=== PATIENT | female | born 1930 | race Caucasian/White ===

== ENCOUNTER → 2017-01-10 | Outpatient (CLI) | payer MEDICARE, OTHER | END | disposition home or self-care (01) | LOC: GMAJ 11:19 | PROVIDERS: ATTEND Family Medicine | DX: E03.9 Hypothyroidism, unspecified (principal) ==

== ENCOUNTER → 2017-01-13 | Outpatient (CLI) | payer MEDICARE, OTHER | END | disposition home or self-care (01) | LOC: GMAJ 07:50 | PROVIDERS: ATTEND Family Medicine | DX: E83.42 Hypomagnesemia (principal) ==

== ENCOUNTER → 2017-01-27 | Outpatient (CLI) | payer MEDICARE, OTHER | END | disposition home or self-care (01) | LOC: GMAJ 10:46 | PROVIDERS: ATTEND Family Medicine | DX: D64.9 Anemia, unspecified (principal) ==

== ENCOUNTER → 2017-05-17 | Outpatient (CLI) | payer MEDICARE, OTHER | LOC: GRHH 13:02 | PROVIDERS: ATTEND Family Medicine | DX: R30.9 Painful micturition, unspecified (principal) ==

== ENCOUNTER 2017-05-20 20:36 | Emergency (ER) | payer MEDICARE, OTHER ==
[2017-05-20] MEDS ORDERED: SODIUM CHLORIDE 0.9% (FLUSH) 10 ML SYG IV PRN (21:02)
[2017-05-20] MEDS ORDERED: ASPIRIN TABLET 325 MG TAB PO ONE (21:02)
[2017-05-20] MEDS ORDERED: NITROGLYCERIN 0.4 MG 25 EA TAB SL ONE (21:02)
--- NOTE | 2017-05-20 21:50 | ED.PDOC ---
History of Present Illness - General Chief Complaint: Chest Pain/VA Stated Complaint: CP Time Seen by Provider: 05/20/17 21:27 Source: patient, RN notes reviewed, Vital Signs reviewed, family Exam Limitations: no limitations - History of Present Illness Initial Comments: Patient comes in with c/o intermittent chest heaviness for the past month. She came today because it was worse than before. The pain is substernal. + SOB, no diaphoresis. She has been nauseated but attributed it to the antibiotic she is on for a bladder infection. She has a history of a. 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 Except for this episode starting a month ago she denies any prior episodes of chest pain/heaviness. Pain is worse if she bends over. She is able to walk around the block several times with physical therapy w/o chest discomfort but does get SOB. Timing/Duration: intermittent - over the past month Severity/Quality: mild - 2-3/10, other - heaviness Location: substernal Chest Pain Radiation: no radiation Activities at Onset: other - Does not seem to be tied to any activity and resolves on its own Prior Chest Pain/Cardiac Workup: other - Scheduled for stress test next week. Improving Factors: nothing Worsening Factors: other - bending over Nitro Today/Relief: 0.4 mg x 1, provided by ED, complete relief Aspirin Treatment Today: no aspirin today - Patient reports she was told not to take asprin, Associated Symptoms: nausea/vomiting, shortness of breath Allergies/Adverse Reactions: Allergies Amiodarone Allergy (Verified 05/20/17 20:59) Ofloxacin [From Floxin] Allergy (Verified 05/20/17 20:59) Propafenone Allergy (Verified 05/20/17 20:59) Home Medications: Ambulatory Orders Calcium Citrate [Dexter-Citrate] 150 mg PO DAILY 04/15/14 Carvedilol 12.5 mg PO TID 04/15/14 Flaxseed (Linseed) [Flax Seed Oil] 1,000 mg PO DAILY 04/15/14 Hydroxychloroquine [Plaquenil] 200 mg PO BID 04/15/14 Levothyroxine Sodium [Synthroid] 0.088 mg PO DAILY 04/15/14 Multiple Vitamins W/ Minerals [Multi Complete] 1 ea PO DAILY 04/15/14 Amiodarone HCl 200 mg PO 05/20/17 Folic Acid 1 mg PO 05/20/17 Review of Systems - Review of Systems Constitutional: States: no symptoms reported EENTM: States: no symptoms reported Respiratory: States: short of breath. Denies: cough Cardiology: States: chest pain. Denies: edema, palpitations, syncope Gastrointestinal/Abdominal: States: nausea. Denies: abdominal pain, vomiting Musculoskeletal: States: no symptoms reported Skin: States: no symptoms reported Neurological: States: no symptoms reported All other Systems: No Change from Baseline Past Medical History (General) - Patient Medical History Hx Seizures: No Hx Stroke: No Hx Dementia: No Hx Asthma: Yes Hx of COPD: No Hx Cardiac Disorders: Yes Hx Congestive Heart Failure: No Hx Pacemaker: No Hx Hypertension: Yes Hx Thyroid Disease: No Hx Diabetes: No Hx Gastroesophageal Reflux: Yes Hx Renal Disease: No Hx Cancer: No Hx of HIV: No Hx Hepatitis C: No Hx MRSA: No Surgical History: appendectomy, tonsillectomy, Hysterectomy - Vaccination History Hx Tetanus, Diphtheria Vaccination: Yes Hx Influenza Vaccination: Yes Hx Pneumococcal Vaccination: Yes Immunizations Up to Date: Yes - Social History Hx Tobacco Use: No Hx Chewing Tobacco Use: No Hx Alcohol Use: No Hx Substance Use: No Hx Substance Use Treatment: No Hx Depression: No Feels Threatened In Home Enviroment: No Feels Threatened In a Relationship: No Hx Physical Abuse: No Hx Emotional Abuse: No Hx Suspected Abuse: No Family Medical History - Family History Mother Family History: No Known Living Status: Age at (years of age): 98 Cause of : pneumonia Father Family History: No Known Living Status: Age at (years of age): 64 Cause of : surgical complications Sister Family History: Unknown Living Status: Cause of : Lung Cancer Physical Exam - Physical Exam General Appearance: Alert, Comfortable, No apparent distress, Well Developed, Well Groomed, Well Hydrated, Well Nourished Neck: non-tender, supple, normal inspection Respiratory: lungs clear, normal breath sounds, no respiratory distress, no accessory muscle use, other - Lower middle chest wall tenderness Cardiovascular/Chest: regular rate, rhythm, no edema, no gallop, no JVD, no murmur Gastrointestinal/Abdominal: normal bowel sounds, soft, tenderness - epigastric without guarding or rebound. Extremity: normal range of motion, normal inspection Neurologic: alert, normal mood/affect, oriented x 3 Skin Exam: normal color, warm/dry Comments: Vital Signs - 24 hr 05/20/17 20:45 Temperature 98.4 F Pulse Rate [ 69 monitor] Respiratory 16 Rate Blood Pressure 166/81 [Right Arm] O2 Sat by Pulse 100 Oximetry Progress - Progress Progress: 05/20/17 22:52 Patient got up to go to the restroom and now reports chest pain has returned. Initial cardiac enzymes are normal. Will do a second set. Will try GI cocktail to see if helps with symptoms, if not will give another SLNTG 05/21/17 00:13 Patient reports that the pain improved significantly with the GI cocktail but did not go completely away. Awaiting second set of cardiac enzymes. 05/21/17 00:17 Second set of Cardiac enzymes are normal Will d/c home and have her follow up with her brim stiffener and PCP. - Results/Orders Results/Orders: Laboratory Tests 05/20/17 05/20/17 21:00 23:50 WBC 7.4 RBC 3.91 L Hgb 12.0 Hct 35.7 L MCV 91.3 MCH 30.6 MCHC 33.5 RDW 15.3 H Plt Count 133 MPV 8.1 Absolute Neuts (auto) 5.60 Absolute Lymphs (auto) 1.00 Absolute Monos (auto) 0.70 Absolute Eos (auto) 0.00 Absolute Basos (auto) 0.00 Neutrophils % 76.5 Lymphocytes % 13.8 L Monocytes % 9.2 H Eosinophils % 0.0 L Basophils % 0.5 PT 11.1 INR 0.980 PTT (SP) 29.3 Sodium 130 L Potassium 4.1 Chloride 93 L Carbon Dioxide 27 Anion Gap 14.1 BUN 37 H Creatinine 1.93 H BUN/Creatinine Ratio 19.2 Random Glucose 122 H Serum Osmolality 270.8 L Calcium 9.3 Magnesium 2.0 Creatine Kinase 103 81 CK-MB (CK-2) 2.8 2.4 CK-MB (CK-2) % Not Reportable Not Reportable Troponin I < 0.02 < 0.02 B-Natriuretic Peptide 359.0 H* - EKG/XRAY/CT EKG: nonspecific ST T wave Chg Comments: Electronic pacemaker, Incomplete LBBB, no old EKG for comparison XRAY: chest - Enlarged heart but no vascular congestion Departure - Departure Clinical Impression: Atypical chest pain Time of Disposition: 00:18 Disposition: Discharge to Home or Self Care Condition: Fair Departure Forms: ED Discharge - Pt. Copy, Patient Portal Self Enrollment Instructions: DI for Atypical Chest Pain Diet: resume usual diet Activity: increase activity as tolerated Referrals: Francisco Lubin MD [Primary Care Provider] - 1-2 Weeks Home Medications: Ambulatory Orders Calcium Citrate [Dexter-Citrate] 150 mg PO DAILY 04/15/14 Carvedilol 12.5 mg PO TID 04/15/14 Flaxseed (Linseed) [Flax Seed Oil] 1,000 mg PO DAILY 04/15/14 Hydroxychloroquine [Plaquenil] 200 mg PO BID 04/15/14 Levothyroxine Sodium [Synthroid] 0.088 mg PO DAILY 04/15/14 Multiple Vitamins W/ Minerals [Multi Complete] 1 ea PO DAILY 04/15/14 Amiodarone HCl 200 mg PO 05/20/17 Folic Acid 1 mg PO 05/20/17 Comments: Follow up with your brim stiffener next week Return to ER with any new or worsening symptoms
--- NOTE | 2017-05-20 22:44 | RAD ---
EXAM DESCRIPTION: Chest,1 View CLINICAL HISTORY: 86 years, Female, chest pain COMPARISON: Chest x-ray dated 08/26/2014. Chest x-ray dated 03/22/2017. FINDINGS: Upright portable chest radiograph was performed. This is the prior study is a dual-chamber bipolar pacemaker with intact leads. No pneumothorax. The lungs are well expanded and clear. The costophrenic sulci are sharp. The cardiac silhouette is enlarged without pulmonary edema. The hilar regions, trachea, soft tissues and bony structures are unremarkable aside from degenerative changes. No significant change since the prior study. IMPRESSION: No acute cardiopulmonary disease. Cardiomegaly. Electronically signed by: Charity Tay MD 05/20/2017 10:43 PM CDT
[2017-05-20] MEDS ORDERED: LIDOCAINE VIS-MYLANTA 30 ML UD PO ONE (22:53)
[2017-05-21 00:24] VITALS: BP 188/96; TEMP 97.4; O2SAT 97
== END 2017-05-21 00:24 | disposition home or self-care (01) ==
LOC: ER 20:36
DX: R07.89 Other chest pain (principal); I44.7 Left bundle-branch block, unspecified; K21.9 Gastro-esophageal reflux disease without esophagitis; J45.909 Unspecified asthma, uncomplicated; I51.9 Heart disease, unspecified; I11.9 Hypertensive heart disease without heart failure; Z95.0 Presence of cardiac pacemaker

== ENCOUNTER → 2017-05-25 | Outpatient (CLI) | payer MEDICARE, OTHER | END | disposition home or self-care (01) | LOC: LAB.O 12:06 | PROVIDERS: ATTEND Internal Medicine Nephrology | DX: N18.4 Chronic kidney disease, stage 4 (severe) (principal); R53.83 Other fatigue ==

== ENCOUNTER → 2017-05-27 | Outpatient (CLI) | payer MEDICARE, OTHER ==
--- NOTE | 2017-05-29 14:08 | CT ---
EXAM DESCRIPTION: Abdoment/Pelvis w/o Contrast CLINICAL HISTORY: CHRONIC KIDNEY DISEASE, STAGE 4 COMPARISON: October 28, 2014 TECHNIQUE: Noncontrast transaxial CT images of the abdomen and pelvis are obtained. This exam was performed according to our departmental dose-optimization program, which includes automated exposure control, adjustment of the mA and/or kV according to patient size and/or use of iterative reconstruction technique . FINDINGS: Visualized lung bases show dual-lead transvenous cardiac pacemaker leads in place. Mild interstitial thickening in the right lung base is seen. Surgical clips in the upper epigastric region are again seen. Imaging of the solid organs is limited without IV contrast. Several fluid attenuation hepatic cysts are stable from previous. There is a stable 1.5 cm low-attenuation lesion of the spleen. Surgical clips from cholecystectomy are seen. Dense calcification inferior to the head of the pancreas measuring 1.3 cm is again seen. Mild calcific atherosclerotic disease is noted. Bilateral renal cortical cysts are seen. Some cysts are hyperdense wall is a fluid attenuation relatively stable from previous. No ureteral calcification or obstruction is seen. Urinary bladder is mostly contracted and not well evaluated. There is diffuse circumferential urinary bladder wall thickening. Uterus is presumed surgically absent. The ovaries are not identified. No seen. No secondary signs of acute appendicitis are identified. No small bowel obstruction. Stomach is mostly contracted and not well evaluated. No significant diverticular disease. No pathologically enlarged abdominal or retroperitoneal lymphadenopathy. Osseous structures show diffuse osteopenia. 3 surgical pins fixating the left femoral head and neck are again seen. There has been interval resolution of the fluid collections around the left hip seen on previous exam. Right-sided rib fractures are noted. Moderate to severe disc degenerative changes of the bilateral noted most significant at L1-2 and L5-S1. IMPRESSION: No acute findings on noncontrast CT of the abdomen and pelvis. Chronic findings are mostly stable compared to previous exam. Diffuse urinary bladder wall thickening is nonspecific and could be secondary to poor distention of the urinary bladder. Infectious or inflammatory etiology could have a similar appearance. Simple fluid attenuation and complex hyperdense renal cortical cysts are noted and appear relatively similar to previous exam given differences in imaging technique. No hydronephrosis or ureteral obstruction. Electronically signed by: Francis Campbell MD 05/29/2017 2:07 PM CDT
== END | disposition home or self-care (01) ==
LOC: CT 08:58
PROVIDERS: ATTEND Internal Medicine Nephrology
DX: N18.4 Chronic kidney disease, stage 4 (severe) (principal)

== ENCOUNTER → 2017-06-06 | Outpatient (CLI) | payer MEDICARE, OTHER | END | disposition home or self-care (01) | LOC: GRHH 09:43 | PROVIDERS: ATTEND Family Medicine | DX: E03.9 Hypothyroidism, unspecified (principal); I10 Essential (primary) hypertension ==

== ENCOUNTER → 2017-06-30 | Outpatient (CLI) | payer MEDICARE, OTHER | END | disposition home or self-care (01) | LOC: GMAJ 15:07 | PROVIDERS: ATTEND Family Medicine | DX: N18.9 Chronic kidney disease, unspecified (principal); I12.9 Hypertensive chronic kidney disease with stage 1 through stage 4 chronic kidney disease, or unspecified chronic kidney disease ==

== ENCOUNTER → 2017-09-26 | Outpatient (CLI) | payer MEDICARE, OTHER | END | disposition home or self-care (01) | LOC: GMAJ 14:53 | PROVIDERS: ATTEND Family Medicine | DX: D64.9 Anemia, unspecified (principal) ==

== ENCOUNTER → 2017-10-10 | Outpatient (CLI) | payer MEDICARE, OTHER | END | disposition home or self-care (01) | LOC: GRHH 10:39 | PROVIDERS: ATTEND Family Medicine | DX: I12.9 Hypertensive chronic kidney disease with stage 1 through stage 4 chronic kidney disease, or unspecified chronic kidney disease (principal); N18.4 Chronic kidney disease, stage 4 (severe) ==

== ENCOUNTER → 2017-10-25 | Outpatient (CLI) | payer MEDICARE, OTHER | END | disposition home or self-care (01) | LOC: GMA 10:54 | PROVIDERS: ATTEND Family Medicine | DX: I10 Essential (primary) hypertension (principal) ==

== ENCOUNTER → 2017-12-15 | Outpatient (CLI) | payer MEDICARE ==
--- NOTE | 2017-12-15 16:18 | RAD ---
EXAM DESCRIPTION: Pelvis CLINICAL HISTORY: 87 years Female, PAIN IN RIGHT HIP COMPARISON: August 17, 2015 FINDINGS: Single AP view of the pelvis shows 3 orthopedic screws fixating the left femoral neck stable from previous. There is a new, impacted right subcapital femoral neck fracture with sclerosis along the fracture margin. This likely represents Garden 1 classification fracture. Consider further evaluation with 2 views of the right hip. Osseous structures are diffusely osteopenic. IMPRESSION: There is a new, impacted right subcapital femoral neck fracture with sclerosis along the fracture margin. This likely represents Garden 1 classification fracture. Consider further evaluation with 2 views of the right hip. Electronically signed by: Francis Campbell MD 12/15/2017 4:17 PM [facility]
--- NOTE | 2017-12-15 16:36 | RAD ---
EXAM DESCRIPTION: Knee,Right Complete CLINICAL HISTORY: 87 years, Female, PAIN IN RIGHT KNEE COMPARISON: None TECHNIQUE: Four views of the right knee FINDINGS: No significant joint effusion is noted but moderate degenerative disc disease and at least mild osteopenia is present with advanced lateral compartment patellofemoral degenerative changes evident on the axial image. Chondrocalcinosis in the lateral joint compartment of the knee and to a lesser extent medially is present. No fracture or dislocation is seen. IMPRESSION: 1. Osteopenia and degenerative changes with chondrocalcinosis. Electronically signed by: Pj Rubio MD 12/15/2017 4:35 PM [facility]
== END | disposition home or self-care (01) ==
LOC: RAD 09:17
PROVIDERS: ATTEND Orthopaedic Surgery
DX: M25.561 Pain in right knee (principal); M25.551 Pain in right hip

== ENCOUNTER 2017-12-24 20:01 | Emergency (ER) | payer MEDICARE ==
[2017-12-24] MEDS ORDERED: LABETALOL INJ 5 MG/ML VIAL IV ONE (20:27)
--- NOTE | 2017-12-24 20:31 | ED.PDOC ---
History of Present Illness - General Stated Complaint: high blood pressure Time Seen by Provider: 12/24/17 20:13 Source: patient Exam Limitations: no limitations - History of Present Illness Timing/Duration: unsure Severity: moderate Improving Factors: nothing Worsening Factors: nothing Associated Symptoms: malaise, other - dizziness and jitteriness Allergies/Adverse Reactions: Allergies Ofloxacin [From Floxin] Allergy (Verified 12/24/17 20:27) Propafenone Allergy (Verified 12/24/17 20:27) Home Medications: Ambulatory Orders Calcium Citrate [Dexter-Citrate] 150 mg PO DAILY 04/15/14 Carvedilol 12.5 mg PO TID 04/15/14 Flaxseed (Linseed) [Flax Seed Oil] 1,000 mg PO DAILY 04/15/14 Hydroxychloroquine [Plaquenil] 200 mg PO BID 04/15/14 Levothyroxine Sodium [Synthroid] 0.088 mg PO DAILY 04/15/14 Multiple Vitamins W/ Minerals [Multi Complete] 1 ea PO DAILY 04/15/14 Amiodarone HCl 200 mg PO 05/20/17 Folic Acid 1 mg PO 05/20/17 Clonidine HCl 0.2 mg PO BID PRN #20 tab 12/24/17 Review of Systems - Review of Systems Constitutional: States: no symptoms reported. Denies: diaphoresis, weakness EENTM: States: nose congestion Respiratory: Denies: cough, short of breath, wheezing Cardiology: Denies: chest pain, palpitations, syncope Gastrointestinal/Abdominal: Denies: abdominal pain, nausea, vomiting Genitourinary: States: no symptoms reported. Denies: dysuria Musculoskeletal: States: joint pain, joint swelling Skin: Denies: rash Neurological: States: anxiety. Denies: headache, numbness, paresthesia, weakness Endocrine: States: no symptoms reported Hematologic/Lymphatic: States: no symptoms reported Past Medical History (General) - Patient Medical History Hx Seizures: No Hx Stroke: No Hx Dementia: No Hx Asthma: Yes Hx of COPD: No Hx Cardiac Disorders: Yes Hx Congestive Heart Failure: No Hx Pacemaker: Yes Hx Hypertension: Yes Hx Thyroid Disease: Yes Hx Diabetes: No Hx Gastroesophageal Reflux: Yes Hx Renal Disease: No Hx Cancer: No Hx of HIV: No Hx Hepatitis C: No Hx MRSA: No Surgical History: appendectomy, cholecystectomy, Hysterectomy - Vaccination History Hx Tetanus, Diphtheria Vaccination: Yes Hx Influenza Vaccination: Yes Hx Pneumococcal Vaccination: Yes - Social History Hx Tobacco Use: No Hx Chewing Tobacco Use: No Hx Alcohol Use: No Hx Substance Use: No Hx Substance Use Treatment: No Hx Depression: No Feels Threatened In Home Enviroment: No Feels Threatened In a Relationship: No Hx Physical Abuse: No Hx Emotional Abuse: No Hx Suspected Abuse: No - Female History Patient is a Female of Child Bearing Age (10 -59 yrs old): No Family Medical History - Family History Mother Family History: No Known Living Status: Age at (years of age): 98 Cause of : pneumonia Father Family History: No Known Living Status: Age at (years of age): 64 Cause of : surgical complications Sister Family History: Unknown Living Status: Cause of : Lung Cancer Physical Exam - Physical Exam General Appearance: Alert, Anxious, Restless Eye Exam: bilateral normal Ears, Nose, Throat: hearing grossly normal, normal ENT inspection Neck: full range of motion Respiratory: chest non-tender, lungs clear, normal breath sounds, no respiratory distress Cardiovascular/Chest: normal peripheral pulses, regular rate, rhythm, no edema Gastrointestinal/Abdominal: normal bowel sounds, non tender, soft Extremity: normal range of motion, non-tender, no pedal edema Neurologic: hydrogen cell tender II-XII nml as tested, alert, normal mood/affect, oriented x 3 Skin Exam: normal color, warm/dry Lymphatic: no adenopathy Departure - Departure Clinical Impression: Hypertensive urgency Disposition: Discharge to Home or Self Care Condition: Good Referrals: Francisco Lubin MD [Primary Care Provider] - 1-2 Weeks Prescriptions: Clonidine HCl 0.2 mg PO BID PRN #20 tab PRN Reason: Hypertension Home Medications: Ambulatory Orders Calcium Citrate [Dexter-Citrate] 150 mg PO DAILY 04/15/14 Carvedilol 12.5 mg PO TID 04/15/14 Flaxseed (Linseed) [Flax Seed Oil] 1,000 mg PO DAILY 04/15/14 Hydroxychloroquine [Plaquenil] 200 mg PO BID 04/15/14 Levothyroxine Sodium [Synthroid] 0.088 mg PO DAILY 04/15/14 Multiple Vitamins W/ Minerals [Multi Complete] 1 ea PO DAILY 04/15/14 Amiodarone HCl 200 mg PO 05/20/17 Folic Acid 1 mg PO 05/20/17 Clonidine HCl 0.2 mg PO BID PRN #20 tab 12/24/17
[2017-12-24 21:03] VITALS: TEMP 98.1
[2017-12-24 21:04] VITALS: O2SAT 99
[2017-12-24 21:29] VITALS: BP 172/84
[2017-12-24] MEDS ORDERED: cloNIDine HCL 0.1 MG TAB PO ONE (21:31)
== END 2017-12-24 21:51 | disposition home or self-care (01) ==
LOC: ER 20:01
DX: I16.0 Hypertensive urgency (principal); I10 Essential (primary) hypertension; E07.9 Disorder of thyroid, unspecified; Z95.0 Presence of cardiac pacemaker

== ENCOUNTER → 2017-12-29 | Outpatient (CLI) | payer MEDICARE | LOC: GRHH 10:13 | PROVIDERS: ATTEND Internal Medicine Rheumatology | DX: D64.9 Anemia, unspecified (principal); E87.6 Hypokalemia; N18.4 Chronic kidney disease, stage 4 (severe); M06.9 Rheumatoid arthritis, unspecified ==

== ENCOUNTER → 2018-01-02 | Outpatient (CLI) | payer MEDICARE | LOC: GRHH 09:33 | PROVIDERS: ATTEND Family Medicine | DX: D64.9 Anemia, unspecified (principal) ==

== ENCOUNTER → 2018-01-26 | Outpatient (CLI) | payer MEDICARE, OTHER | LOC: GRHH 11:22 | PROVIDERS: ATTEND Internal Medicine Rheumatology | DX: I10 Essential (primary) hypertension (principal); N18.4 Chronic kidney disease, stage 4 (severe); D64.9 Anemia, unspecified; M06.9 Rheumatoid arthritis, unspecified ==

== ENCOUNTER → 2018-02-09 | Outpatient (CLI) | payer OTHER | LOC: GMAJ 16:40 | PROVIDERS: ATTEND Nurse Practitioner Family | DX: S60.111A Contusion of right thumb with damage to nail, initial encounter (principal) ==

== ENCOUNTER → 2018-03-07 | Outpatient (CLI) | payer OTHER | LOC: GRHH 14:54 | PROVIDERS: ATTEND Internal Medicine Rheumatology | DX: M06.9 Rheumatoid arthritis, unspecified (principal); D64.9 Anemia, unspecified; I10 Essential (primary) hypertension ==

== ENCOUNTER → 2018-03-08 | Outpatient (CLI) | payer OTHER | LOC: GMATM 17:45 | PROVIDERS: ATTEND Nurse Practitioner Family | DX: R82.99 Other abnormal findings in urine (principal) ==

== ENCOUNTER → 2018-03-09 | Outpatient (CLI) | payer OTHER | LOC: GRHH 11:19 | PROVIDERS: ATTEND Family Medicine | DX: E87.6 Hypokalemia (principal); I10 Essential (primary) hypertension ==

== ENCOUNTER → 2018-03-13 | Outpatient (CLI) | payer OTHER | LOC: GRHH 11:51 | PROVIDERS: ATTEND Family Medicine | DX: E87.6 Hypokalemia (principal) ==

== ENCOUNTER → 2018-03-29 | Outpatient (CLI) | payer OTHER | LOC: GRHH 10:40 | PROVIDERS: ATTEND Internal Medicine Rheumatology | DX: M06.9 Rheumatoid arthritis, unspecified (principal); N18.4 Chronic kidney disease, stage 4 (severe) ==

== ENCOUNTER → 2018-04-19 | Outpatient (CLI) | payer OTHER | LOC: GMAJ 14:32 | PROVIDERS: ATTEND Family Medicine | DX: R30.9 Painful micturition, unspecified (principal) ==

== ENCOUNTER → 2018-05-02 | Outpatient (CLI) | payer OTHER | LOC: GMAJ 10:25 | PROVIDERS: ATTEND Family Medicine | DX: I12.9 Hypertensive chronic kidney disease with stage 1 through stage 4 chronic kidney disease, or unspecified chronic kidney disease (principal); M06.9 Rheumatoid arthritis, unspecified; M62.81 Muscle weakness (generalized); D64.9 Anemia, unspecified ==

== ENCOUNTER → 2018-05-30 | Outpatient (CLI) | payer OTHER | LOC: GRHH 11:34 | PROVIDERS: ATTEND Family Medicine | DX: N18.4 Chronic kidney disease, stage 4 (severe) (principal); M06.9 Rheumatoid arthritis, unspecified ==

== ENCOUNTER → 2018-06-28 | Outpatient (CLI) | payer OTHER | LOC: GRHH 15:54 | PROVIDERS: ATTEND Family Medicine | DX: I10 Essential (primary) hypertension (principal); M06.9 Rheumatoid arthritis, unspecified; D64.9 Anemia, unspecified ==

== ENCOUNTER → 2018-08-02 | Outpatient (CLI) | payer OTHER | LOC: GRHH 15:32 | PROVIDERS: ATTEND Internal Medicine Rheumatology | DX: D64.9 Anemia, unspecified (principal); M06.9 Rheumatoid arthritis, unspecified; E87.6 Hypokalemia ==

== ENCOUNTER → 2018-08-10 | Outpatient (CLI) | payer OTHER | LOC: GRHH 10:30 | PROVIDERS: ATTEND Family Medicine | DX: R35.0 Frequency of micturition (principal) ==

== ENCOUNTER → 2018-08-23 | Outpatient (CLI) | payer OTHER | LOC: GRHH 11:04 | PROVIDERS: ATTEND Family Medicine | DX: R30.9 Painful micturition, unspecified (principal) ==

== ENCOUNTER → 2018-08-29 | Outpatient (CLI) | payer OTHER | LOC: GRHH 11:14 | PROVIDERS: ATTEND Family Medicine | DX: I10 Essential (primary) hypertension (principal); E87.1 Hypo-osmolality and hyponatremia; M06.9 Rheumatoid arthritis, unspecified ==

== ENCOUNTER → 2018-10-03 | Outpatient (CLI) | payer OTHER | LOC: GRHH 11:21 | PROVIDERS: ATTEND Internal Medicine Rheumatology | DX: M06.9 Rheumatoid arthritis, unspecified (principal) ==

== ENCOUNTER → 2018-10-10 | Outpatient (CLI) | payer OTHER | LOC: GRHH 09:50 | PROVIDERS: ATTEND Family Medicine | DX: R35.0 Frequency of micturition (principal); E78.2 Mixed hyperlipidemia; E03.9 Hypothyroidism, unspecified; M06.9 Rheumatoid arthritis, unspecified ==

== ENCOUNTER → 2018-10-25 | Outpatient (CLI) | payer OTHER | LOC: GRHH 10:24 | PROVIDERS: ATTEND Family Medicine | DX: R30.9 Painful micturition, unspecified (principal) ==

== ENCOUNTER → 2018-11-07 | Outpatient (CLI) | payer OTHER | LOC: GMAJ 17:06 | PROVIDERS: ATTEND Family Medicine | DX: D50.8 Other iron deficiency anemias (principal) ==

== ENCOUNTER → 2018-11-14 | Outpatient (CLI) | payer OTHER | LOC: GRHH 11:30 | PROVIDERS: ATTEND Internal Medicine Rheumatology | DX: I10 Essential (primary) hypertension (principal); M06.9 Rheumatoid arthritis, unspecified; E87.1 Hypo-osmolality and hyponatremia ==

== ENCOUNTER → 2018-12-05 | Outpatient (CLI) | payer OTHER | LOC: GRHH 12:46 | PROVIDERS: ATTEND Internal Medicine Rheumatology | DX: D64.9 Anemia, unspecified (principal); M06.9 Rheumatoid arthritis, unspecified; E87.1 Hypo-osmolality and hyponatremia ==

== ENCOUNTER → 2019-01-03 | Outpatient (CLI) | payer OTHER | LOC: GRHH 11:53 | PROVIDERS: ATTEND Internal Medicine Rheumatology | DX: I10 Essential (primary) hypertension (principal); N18.4 Chronic kidney disease, stage 4 (severe); M06.9 Rheumatoid arthritis, unspecified; D64.9 Anemia, unspecified ==

== ENCOUNTER → 2019-01-12 | Outpatient (CLI) | payer OTHER | LOC: GRHH 13:20 | PROVIDERS: ATTEND Family Medicine | DX: R30.0 Dysuria (principal) ==

== ENCOUNTER → 2019-01-17 | Outpatient (CLI) | payer OTHER | LOC: GRHH 09:52 | PROVIDERS: ATTEND Internal Medicine Rheumatology | DX: R10.9 Unspecified abdominal pain (principal); R19.7 Diarrhea, unspecified; Z79.899 Other long term (current) drug therapy ==

== ENCOUNTER → 2019-01-31 | Outpatient (CLI) | payer OTHER | LOC: GRHH 11:21 | PROVIDERS: ATTEND Internal Medicine Rheumatology | DX: I10 Essential (primary) hypertension (principal); E87.1 Hypo-osmolality and hyponatremia; M06.9 Rheumatoid arthritis, unspecified ==

== ENCOUNTER → 2019-02-27 | Outpatient (CLI) | payer OTHER | LOC: GRHH 09:25 | PROVIDERS: ATTEND Family Medicine | DX: I10 Essential (primary) hypertension (principal); E87.1 Hypo-osmolality and hyponatremia; D64.9 Anemia, unspecified ==

== ENCOUNTER → 2019-03-15 | Outpatient (CLI) | payer OTHER | LOC: GRHH 11:39 | PROVIDERS: ATTEND Family Medicine | DX: E87.6 Hypokalemia (principal) ==

== ENCOUNTER → 2019-03-28 | Outpatient (CLI) | payer OTHER | LOC: GRHH 11:08 | PROVIDERS: ATTEND Internal Medicine Rheumatology | DX: I10 Essential (primary) hypertension (principal); E87.1 Hypo-osmolality and hyponatremia; D64.9 Anemia, unspecified; M06.9 Rheumatoid arthritis, unspecified ==

== ENCOUNTER → 2019-04-30 | Outpatient (CLI) | payer OTHER | LOC: GRHH 11:28 | PROVIDERS: ATTEND Internal Medicine Rheumatology | DX: M06.9 Rheumatoid arthritis, unspecified (principal) ==

== ENCOUNTER 2019-05-13 13:44 | Inpatient (IN) | payer OTHER ==
--- NOTE | 2019-05-13 14:14 | RAD ---
EXAM: XR Right Hip With Pelvis When Performed, 2 or 3 Views CLINICAL HISTORY: 88 years old and is Female; pain after fall TECHNIQUE: Two or three views of the right hip, with pelvis when performed. COMPARISON: No relevant prior studies available. FINDINGS: Limitations: None. Bones/joints: There is an acute intertrochanteric fracture of the right femur with impaction to about 90 degrees. There are three intact screws in the left proximal femur. There is mild narrowing of the right acetabular joint. No dislocation. Soft tissues: Unremarkable. IMPRESSION: 1. Acute intertrochanteric fracture of the right femur. 2. 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 Electronically signed by: Guillermina Sanchez MD 05/13/2019 2:12 PM CDT
--- NOTE | 2019-05-13 14:59 | ED.PDOC ---
History of Present Illness - General Chief Complaint: Trauma Stated Complaint: right hip pain Time Seen by Provider: 05/13/19 14:24 Source: patient Exam Limitations: no limitations - History of Present Illness Initial Comments: Patient presents by EMS after a fall from standing in her home. She landed on her right hip. She has severe pain in the right hip and some pain in the right knee. The pain is non-radiating, worse with hip flexion, better with keeping the leg straight. She previously fracture her left hip and it was repaired with screws. The knee is painful on the patellar surface. She says that it always bothers her and she doesn't think it is worse. No other injuries nor complaints. Patient denies light-headedness or chest pain before falling. Denies LOC or injury to the head. Timing/Duration: 1-3 hours Severity: moderate Improving Factors: movement Worsening Factors: rest Associated Symptoms: other - see HPI Allergies/Adverse Reactions: Allergies Ofloxacin [From Floxin] Allergy (Verified 12/24/17 20:27) Propafenone Allergy (Verified 12/24/17 20:27) Home Medications: Ambulatory Orders Calcium Citrate [Dexter-Citrate] 150 mg PO DAILY 04/15/14 Carvedilol 12.5 mg PO TID 04/15/14 Flaxseed (Linseed) [Flax Seed Oil] 1,000 mg PO DAILY 04/15/14 Levothyroxine Sodium [Synthroid] 0.088 mg PO DAILY 04/15/14 Multiple Vitamins W/ Minerals [Multi Complete] 1 ea PO DAILY 04/15/14 Amiodarone HCl 200 mg PO DAILY 05/20/17 Clonidine HCl [Clonidine Hydrochloride] 0.2 mg PO BID PRN #20 tab 12/24/17 Hydroxychloroquine Sulfate [Plaquenil] 200 mg PO DAILY 05/13/19 Leflunomide 10 mg PO DAILY 05/13/19 Megestrol Acetate 20 mg PO DAILY 05/13/19 Mirabegron [Myrbetriq] 05/13/19 Mirabegron [Myrbetriq] 25 mg PO DAILY 05/13/19 Ondansetron HCl [Zofran] 4 mg PO PRN PRN 05/13/19 Pantoprazole Tablet [Protonix] 40 mg PO ACBK 05/13/19 Potassium Chloride [Klor-Con Sprinkle] 10 meq PO 05/13/19 Review of Systems - Review of Systems Constitutional: States: no symptoms reported EENTM: States: no symptoms reported Respiratory: States: no symptoms reported Cardiology: States: no symptoms reported Gastrointestinal/Abdominal: States: no symptoms reported Musculoskeletal: States: see HPI Skin: States: other - bruise over right patella Neurological: States: no symptoms reported Endocrine: States: no symptoms reported Hematologic/Lymphatic: States: see HPI Past Medical History (General) - Patient Medical History Hx Seizures: No Hx Stroke: No Hx Dementia: No Hx Asthma: Yes Hx of COPD: No Hx Cardiac Disorders: Yes - Atrial fib Hx Congestive Heart Failure: No Hx Pacemaker: Yes Hx Hypertension: Yes Hx Thyroid Disease: Yes Hx Diabetes: No Hx Gastroesophageal Reflux: Yes Hx Renal Disease: No Hx Cancer: No Hx of HIV: No Hx Hepatitis C: No Hx MRSA: No Surgical History: appendectomy, cholecystectomy, pacemaker, Hysterectomy - Vaccination History Hx Tetanus, Diphtheria Vaccination: Yes Hx Influenza Vaccination: Yes Hx Pneumococcal Vaccination: Yes - Social History Hx Tobacco Use: No Hx Chewing Tobacco Use: No Hx Alcohol Use: No Hx Substance Use: No Hx Substance Use Treatment: No Hx Depression: No Hx Physical Abuse: No Hx Emotional Abuse: No Hx Suspected Abuse: No - Activities of Daily Living [facility]isted Living (if applicable):: [facility] Family Medical History - Family History Mother Family History: No Known Living Status: Age at (years of age): 98 Cause of : pneumonia Father Family History: No Known Living Status: Age at (years of age): 64 Cause of : surgical complications Sister Family History: Unknown Living Status: Cause of : Lung Cancer Physical Exam - Physical Exam General Appearance: Alert Eye Exam: bilateral normal Ears, Nose, Throat: normal ENT inspection Neck: non-tender, full range of motion, supple Respiratory: lungs clear, normal breath sounds Cardiovascular/Chest: normal peripheral pulses, regular rate, rhythm, no edema Gastrointestinal/Abdominal: normal bowel sounds, non tender, soft Back Exam: normal inspection, no CVA tenderness Extremity: other - Patient cannot flex the right hip due to pain. There is TTP over the greater trochanter of the right hip. Right knee is NTTP. There is a softball size contusion over the anterior patella. Neurologic: radiation officer II-XII nml as tested, no motor/sensory deficits, alert, normal mood/affect, oriented x 3 Skin Exam: normal color Lymphatic: no adenopathy Progress - Progress Progress: 05/13/19 15:34 Radiographs of the right hip show intertrochanteric fracture. Admission labs drawn. I spoke with Alison Newman who agreed to admit the patient and to Dr. Sandoval who agreed to see the patient in the morning. Laboratory Tests 05/13/19 05/13/19 05/13/19 14:51 14:51 14:51 WBC 6.2 RBC 3.26 L Hgb 10.4 L Hct 30.8 L MCV 94.4 MCH 31.9 H MCHC 33.8 RDW 12.9 Plt Count 156 MPV 7.9 Absolute Neuts (auto) 5.10 Absolute Lymphs (auto) 0.50 L Absolute Monos (auto) 0.50 Absolute Eos (auto) 0.10 Absolute Basos (auto) 0.00 Neutrophils % 82.2 H Lymphocytes % 7.5 L Monocytes % 8.3 Eosinophils % 1.6 Basophils % 0.4 PT 10.3 INR 1.03 PTT (SP) 21.0 L Sodium 126 L Potassium 3.2 L Chloride 96 L Carbon Dioxide 19 L Anion Gap 14.2 BUN 39 H Creatinine 2.76 H BUN/Creatinine Ratio 14.1 Random Glucose 111 H Serum Osmolality 263.5 L Calcium 8.2 L Total Bilirubin 0.3 AST 37 ALT 29 Alkaline Phosphatase 43 Serum Total Protein 6.7 Albumin 3.9 Globulin 2.8 Albumin/Globulin Ratio 1.4 Departure - Departure Clinical Impression: Fracture of hip Disposition: Admit Patient Condition: Fair Diet: other - NPO after midnight Activity: other - bed rest Home Medications: Ambulatory Orders Calcium Citrate [Dexter-Citrate] 150 mg PO DAILY 04/15/14 Carvedilol 12.5 mg PO TID 04/15/14 Flaxseed (Linseed) [Flax Seed Oil] 1,000 mg PO DAILY 04/15/14 Levothyroxine Sodium [Synthroid] 0.088 mg PO DAILY 04/15/14 Multiple Vitamins W/ Minerals [Multi Complete] 1 ea PO DAILY 04/15/14 Amiodarone HCl 200 mg PO DAILY 05/20/17 Clonidine HCl [Clonidine Hydrochloride] 0.2 mg PO BID PRN #20 tab 12/24/17 Hydroxychloroquine Sulfate [Plaquenil] 200 mg PO DAILY 05/13/19 Leflunomide 10 mg PO DAILY 05/13/19 Megestrol Acetate 20 mg PO DAILY 05/13/19 Mirabegron [Myrbetriq] 05/13/19 Mirabegron [Myrbetriq] 25 mg PO DAILY 05/13/19 Ondansetron HCl [Zofran] 4 mg PO PRN PRN 05/13/19 Pantoprazole Tablet [Protonix] 40 mg PO ACBK 05/13/19 Potassium Chloride [Klor-Con Sprinkle] 10 meq PO 05/13/19
--- NOTE | 2019-05-13 15:23 | RAD ---
EXAM: XR Right Knee Complete, 4 or More Views CLINICAL HISTORY: The patient is 88 years old and is Female; fall from standing, pain in knee TECHNIQUE: Four or more views of the right knee. COMPARISON: Radiographs of the right knee from 12/15/2017 FINDINGS: BONES/JOINTS: There is a moderate knee joint effusion. Diffuse osteopenia. No dislocation. No obvious acute fracture. There is chronic asymmetry and degenerative change at the patellofemoral joint. Meniscal chondrocalcinosis is noted. SOFT TISSUES: No significant soft tissue swelling visualized. VASCULATURE: Atherosclerotic calcifications visualized. IMPRESSION: 1. Knee joint effusion. 2. No acute fracture visualized. Electronically signed by: Lydia Puri MD 05/13/2019 3:21 PM CDT
--- NOTE | 2019-05-13 15:28 | HP ---
SUPERVISING PHYSICIAN: Kieran Davis MD CHIEF COMPLAINT: Right hip pain. HISTORY OF PRESENT ILLNESS: This is an 88-year-old female patient who lives at [facility]. She is usually very independent at home. She had some rubber-soled shoes on today and got up from her couch and she thinks her sole caught on the carpeting and she fell. She landed on her right hip. She had severe pain to that right hip with some pain to the right knee. She was brought to the Emergency Room and her right pelvic x-ray showed her to have an acute intertrochanteric fracture of the right femur. A right knee x-ray was also done and shows knee joint effusion with no acute fracture visualized. 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 She had a previous fall with fracture to her left hip in 2013 that was repaired by Dr. Grayson Sandoval, orthopedic surgeon. The ER doctor spoke with Dr. Sandoval and he said he would be willing to do the surgical procedure tomorrow, so I was called for hospital admission. Prior to her symptoms from the Emergency Room, the ER physician ordered routine lab. PAST MEDICAL HISTORY: 1. Seasonal allergies. 2. Atrial fibrillation on amiodarone and carvedilol. 3. Hypertension. 4. Hypothyroidism. 5. Osteoporosis. 6. Peptic ulcer disease. 7. Coronary artery disease. 8. Brain meningioma. 9. Pulmonary nodule. 10. Subdural hematoma after a fall in 2016. 11. 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 She is followed by Dr. Whyte in [place]. PAST SURGICAL HISTORY: 1. Appendectomy. 2. Biopsy of the breast x3. 3. Bilateral cataract removal. 4. Hysterectomy. 5. Tonsillectomy and adenoidectomy. 6. 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 7. Pacemaker implantation. OUTPATIENT MEDICATIONS: Per the EMR and awaiting verification. ALLERGIES: OFLOXACIN, PROPAFENONE. FAMILY HISTORY: Noncontributory. SOCIAL HISTORY: She is retired. She is . She lives at [facility]. She denies tobacco, ETOH or illicit drug use. REVIEW OF SYSTEMS: Negative except as per history of present illness with pain to that right hip. PHYSICAL EXAMINATION: VITAL SIGNS: Temperature 97.6. Heart rate 74. Blood pressure 168/84. Respiratory rate 20. O2 95% on room air. GENERAL: This is an 88-year-old female patient who is lying in her hospital bed. She is in no acute distress. HEENT: Normocephalic, atraumatic. Pupils are equal and reactive. Oropharynx is clear. NECK: Supple without mass. RESPIRATORY: Essentially clear to auscultation bilaterally. CHEST: There is equal rise and fall of the chest with inspiration and expiration. CARDIOVASCULAR: Regular rate and rhythm. GASTROINTESTINAL: Abdomen is soft, nondistended, nontender. Bowel sounds are positive. EXTREMITIES: She has pain to the right lateral hip and to palpation over the greater trochanter. She does have some ecchymosis to the left lower leg that is many years old and she is being followed by Dr. Whyte. Bilateral pedal pulses are palpable at +2. SKIN: Warm and dry. NEUROLOGIC: Awake, alert and oriented times three. Cranial nerves II-XII are grossly intact. LABORATORY: Sodium 126, potassium 3.2, chloride 96, carbon dioxide 19, BUN 39, creatinine 2.76. Glucose 111, serum osmolality 263.5, calcium 8.2. WBCs 6.2, hemoglobin 10.4, hematocrit 30.8. She does have a left shift on her differential. PT 10.3, INR 1.03, PTT 21. Urinalysis shows 100 urine glucose, small amount of urine blood, 4+ urine bacteria. RADIOLOGY: As per history of present illness. IMPRESSION: 1. Acute intertrochanteric fracture of the right femur. 2. Mild electrolyte imbalance, mainly hypokalemia and hyponatremia. 3. Chronic renal insufficiency. Her creatinine today is 2.76. Her baseline creatinine is 2.4 to 2.5. 4. Unknown bleeding disorder, mostly due to anticoagulation therapy. She is followed by Dr. Whyte, [facility] in [place]. 5. History of atrial fibrillation on amiodarone and carvedilol. She is not on any anticoagulation therapy due to #4. 6. Peptic ulcer disease. 7. Hypothyroidism on supplementation. 8. Hypertension. PLAN: I have admitted the patient to the hospital. I did not know about the bleeding disorder until after I examined the patient. I have consulted Dr. Sandoval and initiated his preoperative orders. I am not sure when surgery will be tomorrow, but we will need to do talk to Dr. Whyte as soon as possible in the morning about anticoagulation therapy after surgery because she will definitely need 35 days of anticoagulation after her surgery and she may not be able to be managed at this hospital and may need transfer, but we will follow Dr. Whyte's recommendations. I have also given her some IV fluids tonight and I am rechecking her lab in the morning. I will resume her home medications as soon as they are verified and she will get her dosing tonight before midnight as well as she will need to get her amiodarone and beta saroj in the morning prior to surgery with some sips of water. I will also put her on some Tylenol No. 3 for pain. It was somewhat confusing as the patient had mentioned she had some adverse reaction to some IV pain medications and those may need to be reviewed tomorrow. For now, she will use Tylenol No. 3. She has a proton pump inhibitor for ulcer prophylaxis. We will continue to monitor the patient closely and follow as needed. [facility][id number] [facility]
[2019-05-13] MEDS ORDERED: ACETAMINOPHEN 325 MG TAB PO ONE (16:46)
[2019-05-13] MEDS ORDERED: diphenhydrAMINE HCL 50 MG/ML VIAL IV ONE (16:46)
[2019-05-13] MEDS ORDERED: SODIUM CHLORIDE 0.9% 500ML 500 ML IVS SCH (17:00)
[2019-05-13] MEDS ORDERED: POTASSIUM CHLORIDE 20 MEQ TAB PO ONE (20:18)
[2019-05-13] MEDS ORDERED: KCL 40MEQ/NS 1,000 ML IVS PRN (20:19)
[2019-05-13] MEDS ORDERED: CARVEDILOL 12.5 MG TAB ONE (20:35)
[2019-05-13] MEDS: SODIUM CHLORIDE 0.9% (FLUSH) 10 ML SYG IV PRN (20:48)
[2019-05-13] MEDS: CARVEDILOL 12.5 MG PO SCH (21:03)
[2019-05-13] MEDS: IV SET AND CAP CHANGE INJ INJ SCH (21:05)
[2019-05-13] MEDS: ACETAMINOPHEN W/COD #3 TAB 1 EA TAB PO PRN (23:02)
[2019-05-14] MEDS: KCL 20MEQ/D5NS 1,000 ML IVS PRN ×2 (00:01→17:42)
[2019-05-14] MEDS ORDERED: ceFAZolin SODIUM 2 GRAMS PREMI 50 ML IVPB ONE ×2 (03:02→19:44)
[2019-05-14] MEDS ORDERED: SODIUM CHLORIDE 0.9% 250ML 250 ML ONE (03:02)
[2019-05-14] MEDS ORDERED: VANCOMYCIN HCL INJ 1,000 MG VIAL IVPB ONE ×3 (03:02→13:05)
[2019-05-14] MEDS: ACETAMINOPHEN W/COD #3 TAB 1 EA TAB PO PRN (03:10)
[2019-05-14] MEDS ORDERED: CARVEDILOL 12.5 MG TAB ONE (04:37)
[2019-05-14] MEDS ORDERED: TRANEXAMIC ACID 1,000 MG/10 ML VIAL IV ONE (06:00)
[2019-05-14] MEDS ORDERED: ceFAZolin SODIUM 2 GM in SODIUM CHLORIDE 0.9% 100ML 100 ML IVPB ONE (06:00)
[2019-05-14] MEDS ORDERED: VANCOMYCIN HCL INJ 1,000 MG in SODIUM CHLORIDE 0.9% 250ML 250 ML IVPB ONE (06:00)
[2019-05-14] MEDS ORDERED: HEPARIN SODIUM (PORCINE) 5,000 U/ML VIAL SUBCU ONE (06:00)
[2019-05-14] MEDS: AMIODARONE HCL 200 MG TAB PO SCH ×2 (06:23→10:12)
[2019-05-14] MEDS: CARVEDILOL 12.5 MG PO SCH ×2 (06:24→17:40)
[2019-05-14] MEDS: LEVOTHYROXINE SODIUM 0.088 MG TAB PO SCH (06:25)
[2019-05-14] MEDS ORDERED: PANTOPRAZOLE SODIUM IV 40 MG VIAL IV SCH (06:30)
[2019-05-14] MEDS ORDERED: KCL 20MEQ/WATER FOR INJ 100ML 20 MEQ in PREMIX BAG 1 BAG IVPB ONE (08:35)
[2019-05-14] MEDS ORDERED: MAGNESIUM SULFATE PREMIX 2GM 2 GM in PREMIX BAG 1 BAG IVPB ONE (08:35)
[2019-05-14] MEDS ORDERED: KCL 20MEQ/WATER FOR INJ 100ML 100 ML IVPB ONE (09:21)
[2019-05-14] MEDS ORDERED: MAGNESIUM SULFATE PREMIX 2GM 50 ML IVPB ONE (09:21)
[2019-05-14] MEDS ORDERED: SODIUM CHLORIDE 0.9% 500ML 500 ML ONE ×2 (09:22→13:22)
[2019-05-14] MEDS: cloNIDine HCL 0.1 MG TAB PO PRN (10:51)
[2019-05-14] MEDS ORDERED: BUPIVACAINE 0.25% W/EPI 50 ML VIAL INJ ONE (12:26)
[2019-05-14] MEDS ORDERED: ceFAZolin SODIUM 1 GM VIAL ONE (12:27)
[2019-05-14] MEDS ORDERED: BUPIVACAINE 0.5% 30 ML VIAL INJ ONE (12:30)
[2019-05-14] MEDS ORDERED: fentaNYL CITRATE INJ 50 MCG/ML AMP ONE (12:30)
[2019-05-14] MEDS ORDERED: KETAMINE HCL 100 MG/ML VIAL ONE (12:31)
[2019-05-14] MEDS ORDERED: LACTATED RINGERS 1,000 ML ONE (12:55)
[2019-05-14] MEDS ORDERED: ceFAZolin SODIUM 1 GM VIAL IVPB ONE (13:14)
[2019-05-14] MEDS ORDERED: VANCOMYCIN HCL INJ 1,000 MG in SODIUM CHLORIDE 0.9% 250ML 250 ML IVPB SCH (13:30)
--- NOTE | 2019-05-14 13:33 | PN ---
SUPERVISING PHYSICIAN: Lexx Felix MD DATE: 05/14/19 SUBJECTIVE: The patient states she does not have any complaints of pain at this time. She is a little bit drowsy. She just got some Benadryl because she is getting a blood transfusion. No other complaint at this point. OBJECTIVE: VITAL SIGNS: Blood pressure 192/80. Heart rate 70. Respiratory rate 16. Temperature 98.0. Oxygen saturation 98%. GENERAL: Ms. Jarrett is an 88-year-old female in no active distress currently. NEUROLOGIC: Alert. LUNGS: Clear to auscultation bilaterally. CARDIOVASCULAR: Regular rate and rhythm. Normal S1, S2. ABDOMEN: Soft. Positive bowel sounds. GENITOURINARY: Deferred. EXTREMITIES: Lower extremities with no significant edema. Pulses 2+. Capillary refill is less than 2 seconds. LABORATORY: Hemoglobin 8.3, hematocrit 24.5, platelet count 117. Sodium 130, potassium 3.3, chloride 102, CO2 21, BUN 33, creatinine 2.20, glucose 112, calcium 7.8, magnesium 1.7. ASSESSMENT: 1. Acute intertrochanteric fracture of the right femur. 2. Electrolyte imbalance. 3. Acute on chronic renal insufficiency. 4. Bleeding disorder, followed by Dr. Whyte, [facility] in [place]. 5. History of atrial fibrillation on amiodarone and carvedilol. 6. Hypertension. 7. Hypothyroidism. 8. Peptic ulcer disease. PLAN: Based on lab this morning, she will get 2 units of packed red blood cells with a planned Gamma nail repair of her fracture this afternoon. I am also replacing her potassium and magnesium as these are on the low side. Postoperatively, at the advice of Dr. Whyte in [place], she will get prophylactic Lovenox and then go home on aspirin 81 mg daily. [facility][id number] [facility]
[2019-05-14] MEDS ORDERED: BUPIVACAINE LIPOSOME 13.3 MG/ML VIAL INJ ONE (13:57)
[2019-05-14] MEDS ORDERED: SODIUM CHLORIDE 0.9% 50 ML VIAL ONE (14:01)
[2019-05-14] MEDS ORDERED: LACTATED RINGERS 1,000 ML IVS ONE (14:51)
[2019-05-14] MEDS ORDERED: LABETALOL INJ 5 MG/ML VIAL ONE (14:52)
[2019-05-14] MEDS ORDERED: LABETALOL INJ 5 MG/ML VIAL IV ONE ×2 (14:56→15:20)
[2019-05-14] MEDS ORDERED: HYDROmorphone HCL INJ 2 MG/ML VIAL ONE (15:07)
[2019-05-14] MEDS ORDERED: hydrALAZINE HCl 20 MG/ML VIAL ONE (15:08)
[2019-05-14] MEDS ORDERED: hydrALAZINE HCl 20 MG/ML VIAL IV ONE (15:10)
[2019-05-14] MEDS ORDERED: HYDROmorphone HCL INJ 2 MG/ML VIAL IV ONE ×2 (15:12→15:20)
--- NOTE | 2019-05-14 15:38 | RAD ---
EXAM DESCRIPTION: Fluoroscopy Up to 1Hr CLINICAL HISTORY: gamma nail COMPARISON: May 14, 2019 IMPRESSION: Spot fluoroscopic intraoperative views of the right hip are obtained for localization purposes during intramedullary adela and gamma nail fixation of the intertrochanteric fracture. Single distal interlocking screw is identified. Images are limited in diagnostic quality secondary to scanning technique of the printed images. Approximately 53 seconds of intraoperative fluoroscopy time was utilized. 3 extra exposure images are obtained. Electronically signed by: Francis Campbell MD 05/14/2019 3:36 PM CDT
--- NOTE | 2019-05-14 15:40 | RAD ---
EXAM DESCRIPTION: Hip,Right 2 Views CLINICAL HISTORY: 88 years Female, post op COMPARISON: May 13, 2019 FINDINGS: Postoperative changes in the right hip without apparent hardware, patient, new from the prior study. Near anatomic postreduction alignment of a known intertrochanteric right femoral fracture. Postoperative changes in the left hip are unchanged from the previous exam. Moderate to large amount of gas in the visualized portions of the colon. IMPRESSION: Postoperative changes in the right hip with near anatomic postreduction alignment and no parenchymal location. Moderate to large amount of colonic gas. Electronically signed by: Clinton Evans MD 05/14/2019 3:38 PM CDT
--- NOTE | 2019-05-14 15:41 | RAD ---
EXAM DESCRIPTION: Pelvis,2 or More Views CLINICAL HISTORY: 88 years Female, post op COMPARISON: None. FINDINGS: Two views of the pelvis show near anatomic postreduction alignment of a known intertrochanteric right femoral fracture. No hardware of the surgical complication is seen. Postoperative changes in the left hip are stable. No new fracture. IMPRESSION: Uncomplicated postoperative changes in the right hip. Electronically signed by: Clinton Evans MD 05/14/2019 3:39 PM CDT
[2019-05-14] MEDS ORDERED: SODIUM CHLORIDE 0.9% 50 ML VIAL INJ ONE (16:00)
[2019-05-14] MEDS ORDERED: raNITIdine HCL INJ 25 MG/ML VIAL IV ONE (16:00)
[2019-05-14] MEDS ORDERED: DEXAMETHASONE INJ 10 MG/ML VIAL IV ONE (16:00)
[2019-05-14] MEDS ORDERED: PROPOFOL 200 MG/20 ML VIAL IV ONE (16:00)
[2019-05-14] MEDS ORDERED: LIDOCAINE 1% 10 ML VIAL INJ ONE (16:00)
[2019-05-14] MEDS: (Mirabegron [Myrbetriq] 25 MG) PO SCH (16:57)
[2019-05-14] MEDS: HYDROXYCHLOROQUINE SULFATE 200 MG PO SCH ×2 (16:57→19:55)
[2019-05-14] MEDS: LEFLUNOMIDE 10 MG PO SCH (16:57)
[2019-05-14] MEDS: CARVEDILOL 12.5 MG TAB PO SCH ×2 (16:58→19:55)
[2019-05-14] MEDS: ceFAZolin SODIUM 2 GRAMS PREMI 2 GM in PREMIX BAG 1 BAG IVPB SCH (23:55)
[2019-05-15] MEDS: KCL 20MEQ/D5NS 1,000 ML IVS PRN ×2 (03:31→15:39)
[2019-05-15] MEDS: PANTOPRAZOLE SODIUM TAB 40 MG PO SCH (06:21)
[2019-05-15] MEDS: LEVOTHYROXINE SODIUM 0.088 MG TAB PO SCH (06:21)
[2019-05-15] MEDS: AMIODARONE HCL 200 MG TAB PO SCH (08:15)
[2019-05-15] MEDS: (Mirabegron [Myrbetriq] 25 MG) PO SCH ×2 (08:15→08:19)
[2019-05-15] MEDS: LEFLUNOMIDE 10 MG PO SCH (08:15)
[2019-05-15] MEDS: CARVEDILOL 12.5 MG TAB PO SCH ×3 (08:15→19:53)
[2019-05-15] MEDS: HYDROXYCHLOROQUINE SULFATE 200 MG PO SCH ×2 (08:16→19:53)
[2019-05-15] MEDS: ENOXAPARIN SODIUM 30 MG/0.3 ML SYG SUBCU SCH (10:04)
--- NOTE | 2019-05-15 10:14 | PN ---
SUPERVISING PHYSICIAN: Lexx Felix MD DATE: 05/15/19 SUBJECTIVE: The patient states her pain is controlled at this time. She is currently having a bowel movement with no acute complaints verbalized at this time. OBJECTIVE: VITAL SIGNS: Blood pressure 152/75. Heart rate 69. Respiratory rate 16. Temperature 97.4. Oxygen saturation 97%. GENERAL: Ms. Jarrett is an 88-year-old female in no active distress currently. NEUROLOGIC: Alert and oriented. LUNGS: Clear to auscultation bilaterally. CARDIOVASCULAR: Regular rate and rhythm. Normal S1, S2. ABDOMEN: Soft. Positive bowel sounds. EXTREMITIES: Right hip with dressing dry and intact. LABORATORY: Hemoglobin 11.3, hematocrit 34.0, platelet count 119. Chemistry shows sodium 131, potassium 3.9, chloride 106, CO2 16, BUN 27, creatinine 1.93, glucose 153, calcium 7.6. ASSESSMENT: 1. Acute intertrochanteric fracture of the right femur status post Gamma nail repair, postoperative day #1. 2. Electrolyte imbalance, resolved. 3. Acute on chronic renal insufficiency, improved. 4. Anemia, improved after transfusion of packed red blood cells times 2 yesterday. 5. History of atrial fibrillation with controlled rate. 6. Hypertension. 7. Hypothyroidism. 8. Peptic ulcer disease. PLAN: We will continue to monitor the patient postoperatively. She will be placed on prophylactic Lovenox and this will be dosed given her renal insufficiency. We do know she has a bleeding disorder, so we will need to monitor closely for bleeding complications. Dr. Whyte had advised prophylactic Lovenox and then to go home on 81 mg aspirin a day. We will recheck her labs tomorrow as well. [facility][id number] [facility]
[2019-05-15] MEDS ORDERED: ceFAZolin SODIUM 2 GRAMS PREMI 50 ML IVPB ONE (12:39)
[2019-05-15] MEDS: ceFAZolin SODIUM 2 GRAMS PREMI 2 GM in PREMIX BAG 1 BAG IVPB SCH (12:42)
[2019-05-15] MEDS: ACETAMINOPHEN W/COD #3 TAB 1 EA TAB PO PRN (14:47)
[2019-05-15] MEDS: NON-FORMULARY MEDICATION 1 EA MIS (Mirabegron [Myrbetriq] 25 MG) PO SCH (19:53)
[2019-05-16] MEDS: KCL 20MEQ/D5NS 1,000 ML IVS PRN ×2 (01:49→17:26)
[2019-05-16] MEDS: ACETAMINOPHEN W/COD #3 TAB 1 EA TAB PO PRN ×2 (01:58→13:02)
[2019-05-16] MEDS: PANTOPRAZOLE SODIUM TAB 40 MG PO SCH (06:09)
[2019-05-16] MEDS: LEVOTHYROXINE SODIUM 0.088 MG TAB PO SCH (06:09)
--- NOTE | 2019-05-16 08:08 | CONS ---
CHIEF COMPLAINT: Right hip pain. HISTORY OF PRESENT ILLNESS: Puja is an 88-year-old female with a history of a fall on the day of presentation. She had slipped on the carpet and fell directly on the right hip. X-rays reveal an intertrochanteric fracture of the right hip. She was admitted to the hospitalist service and I was consulted. She had no other injury associated with this fall, denied any radiation of pain and denied any neurologic symptoms. PAST MEDICAL HISTORY: 1. Atrial fibrillation. 2. Hypertension. 3. Hypothyroidism. 4. Osteoporosis. 5. Peptic ulcers. 6. Coronary artery disease. 7. Meningioma. 8. Subdural hematoma. PAST SURGICAL HISTORY: 1. Appendectomy. 2. Breast biopsy. 3. Cataract removal. 4. Hysterectomy. 5. Tonsillectomy. 6. Pacemaker implantation. 7. Percutaneous fixation of left hip fracture. ALLERGIES: OFLOXACIN, PROPAFENONE. FAMILY HISTORY: None pertinent to today's complaint. SOCIAL HISTORY: The patient denies alcohol, drug and tobacco use. REVIEW OF SYSTEMS: Negative except as indicated in the History of Present Illness. PHYSICAL EXAMINATION: VITAL SIGNS: Blood pressure 168/84. Pulse 74. Respirations 20. Temperature 97.6. O2 saturation 95% on room air. MENTAL STATUS: The patient is awake, alert, and is able to give a good history and participate in the physical. The patient is oriented to person, place and time. SKIN: Normal tone and turgor. HEENT: Normocephalic, atraumatic. Pupils equal, round and reactive. Mucosal membranes are moist. NECK: Normal range of motion. No thyromegaly, no lymphadenopathy. CHEST: Normal respiratory excursion. CARDIAC: Regular rate and rhythm. No murmurs, rubs or gallops. MUSCULOSKELETAL: The bilateral upper extremities show full active range of motion without pain. She has intact sensation throughout. They are warm and well perfused. She has no crepitus or deformity, no outward signs of trauma. The left lower extremity shows no pain with range of motion of the hip, knee or ankle. She has no crepitus and no deformity. Sensation is intact and it is warm and well perfused. The right lower extremity shows no deformity, but she refuses any movement secondary to hip pain. She has a warm and well perfused extremity. Strength is 5/5 in plantar flexion. Sensation is intact. IMAGING: X-rays reveal an intertrochanteric fracture of the right hip. ASSESSMENT: 1. Intertrochanteric fracture of the right hip. PLAN: The plan at this point is for Gamma nailing. We have discussed the risks, benefits, and alternatives to that and informed consent has been obtained. #[id number] [facility]
--- NOTE | 2019-05-16 08:14 | OP ---
DATE OF PROCEDURE: 05/14/19 PREOPERATIVE DIAGNOSIS: 1. Right hip pain. POSTOPERATIVE DIAGNOSIS: 1. Right intertrochanteric hip fracture. PROCEDURE: 1. Gamma nail, right hip. SURGEON: Grayson Sandoval MD. BUILDING MAINTENANCE MECHANIC: Todd Lim CST, SA-C. ANESTHESIA: General anesthesia. COMPLICATIONS: None. FINDINGS: Intertrochanteric fracture of the right hip. INDICATION: Mrs. Jarrett has a history of a fall that occurred on the day of presentation. Because of the acute onset of pain, she was brought to the Emergency Room and x-rays revealed an intertrochanteric fracture of the hip. She was admitted and I was consulted. After discussing the risks, benefits and alternatives to operative therapy, informed consent was obtained. PROCEDURE: The patient was brought to the Operating Room and placed in the supine position. General anesthesia was administered and the patient was placed on the fracture table. The fracture was provisionally reduced under fluoroscopic imaging and after reduction, the leg and hemipelvis were sterilely prepped and draped. An incision was made just proximal to the greater trochanter and dissection was carried through the iliotibial band and down to the greater trochanter. A starting pin was placed and a one-step reamer was used to open the femoral canal. A 125 degree angled Gamma nail was inserted into the canal to the appropriate level. A guide pin was placed from the lateral cortex into the femoral head. The appropriate length compression screw was measured and inserted with the placement guided under direct imaging. Following that, the distal locking screw was drilled, measured, and placed under imaging. The proximal locking screw was placed through the outrigger into the top of the nail and the outrigger removed. The final construct was imaged and the wounds were thoroughly irrigated, followed by closure with Monocryl suture. Sterile dressings were placed. The patient was awoken from anesthesia and taken to the Recovery Room. POSTOPERATIVE PLAN: She will be partial weightbearing on postoperative day 1. [facility][id number] [facility]
--- NOTE | 2019-05-16 08:18 | PN ---
DATE: 05/15/19 SUBJECTIVE: She is doing well. She is up to a chair and she is not having any significant pain. OBJECTIVE: Afebrile. Vital signs stable. Dressing is clean, dry and intact. ASSESSMENT: Status post Gamma nail. PLAN: The plan at this point is for her to continue with therapy. #[id number] [facility]
[2019-05-16] MEDS: LEFLUNOMIDE 10 MG PO SCH (09:17)
[2019-05-16] MEDS: ENOXAPARIN SODIUM 30 MG/0.3 ML SYG SUBCU SCH (09:17)
[2019-05-16] MEDS: AMIODARONE HCL 200 MG TAB PO SCH (09:17)
[2019-05-16] MEDS: HYDROXYCHLOROQUINE SULFATE 200 MG PO SCH ×2 (09:17→20:13)
[2019-05-16] MEDS: CARVEDILOL 12.5 MG TAB PO SCH ×3 (09:17→20:13)
--- NOTE | 2019-05-16 11:19 | PN ---
SUPERVISING PHYSICIAN: Lexx Felix MD DATE: 05/16/19 SUBJECTIVE: The patient is sitting up in a chair and is doing fairly well. She states yesterday she got up and was able to walk to the chair and back, but did not go as far as she thought she would be able to go. Otherwise at this time, pain is controlled. OBJECTIVE: VITAL SIGNS: Blood pressure 146/79. Heart rate 69. Respiratory rate 16. Temperature 98.0. Oxygen saturation 97%. GENERAL: Ms. Jarrett is an 88-year-old female in no active distress currently. NEUROLOGIC: Alert and oriented. LUNGS: Clear to auscultation bilaterally. CARDIOVASCULAR: Regular rate and rhythm. Normal S1, S2. ABDOMEN: Soft. Positive bowel sounds. No tenderness to palpation. EXTREMITIES: Lower extremities with no significant edema. Right hip with dressing which is dry and intact. ASSESSMENT: 1. Acute intertrochanteric fracture of the right femur status post Gamma nail repair, postoperative day #2. 2. Electrolyte imbalance, resolved yesterday. 3. Acute on chronic renal insufficiency, improved on yesterday's labs. 4. Anemia, improved on yesterday's labs. 5. History of atrial fibrillation with controlled rate. 6. Hypertension. 7. Hypothyroidism. 8. Peptic ulcer disease. PLAN: The patient will continue to participate in physical therapy. She seems to be progressing fairly well. She actually looks better than she did yesterday to me. We will continue her prophylactic Lovenox and she will go home on aspirin 81 mg. I do plan on rechecking her labs tomorrow given the fact that she does have some bleeding disorders, so we will reevaluate her hemoglobin tomorrow. #[id number] [facility]
[2019-05-16] MEDS: IV SET AND CAP CHANGE INJ INJ SCH (17:37)
[2019-05-16] MEDS: NON-FORMULARY MEDICATION 1 EA MIS (Mirabegron [Myrbetriq] 25 MG) PO SCH (20:14)
[2019-05-17] MEDS: KCL 20MEQ/D5NS 1,000 ML IVS PRN ×2 (03:23→19:42)
[2019-05-17] MEDS: LEVOTHYROXINE SODIUM 0.088 MG TAB PO SCH (06:29)
[2019-05-17] MEDS: PANTOPRAZOLE SODIUM TAB 40 MG PO SCH (06:29)
--- NOTE | 2019-05-17 07:57 | PN ---
DATE: 05/16/19 SUBJECTIVE: Ms. Jarrett is doing well. She is up to a chair. OBJECTIVE: Afebrile. Vital signs stable. Wounds are clean. There are no signs or symptoms of infection. ASSESSMENT: Status post Gamma nailing. PLAN: The plan at this point is for her to continue with partial weightbearing. We will likely do inpatient therapy either at [facility] or [facility]. [facility][id number] [facility]
--- NOTE | 2019-05-17 08:00 | PN ---
DATE: 05/17/19 SUBJECTIVE: Ms. Jarrett is doing well. Her pain is improving. OBJECTIVE: Afebrile. Vital signs stable. Wounds are clean. There are no signs or symptoms of infection. ASSESSMENT: Status post Gamma nailing. PLAN: The plan at this point is for her to be transitioned to [facility] once insurance approval has been obtained. #[id number] [facility]
[2019-05-17] MEDS: HYDROXYCHLOROQUINE SULFATE 200 MG PO SCH ×2 (09:24→20:41)
[2019-05-17] MEDS: CARVEDILOL 12.5 MG TAB PO SCH ×3 (09:25→20:41)
[2019-05-17] MEDS: ENOXAPARIN SODIUM 30 MG/0.3 ML SYG SUBCU SCH (09:25)
[2019-05-17] MEDS: LEFLUNOMIDE 10 MG PO SCH (09:25)
[2019-05-17] MEDS: AMIODARONE HCL 200 MG TAB PO SCH (09:25)
[2019-05-17] MEDS ORDERED: FUROSEMIDE INJ 20 MG/2 ML VIAL IV ONE (10:05)
[2019-05-17] MEDS ORDERED: ACETAMINOPHEN 325 MG TAB PO ONE (10:05)
[2019-05-17] MEDS ORDERED: diphenhydrAMINE HCL 50 MG/ML VIAL IV ONE (10:05)
[2019-05-17] MEDS ORDERED: SODIUM CHLORIDE 0.9% 500ML 500 ML IVS SCH (10:30)
[2019-05-17] MEDS: NON-FORMULARY MEDICATION 1 EA MIS (Mirabegron [Myrbetriq] 25 MG) PO SCH (20:41)
--- NOTE | 2019-05-17 22:39 | PN ---
DATE: 05/17/19 SUPERVISING PHYSICIAN: Ryne Felix M.D. SUBJECTIVE: The patient is sitting in a chair. Notes that she is somewhat exhausted, but pain has been well controlled. She has been afebrile. She has had no other complications. I did discuss with her the fact that her blood count had dropped this morning requiring an infusion of packed red blood cells which she is agreement to as well as discussed with her family present. OBJECTIVE: VITAL SIGNS: Showing to be stable with temperature 98.8, pulse 70, blood pressure 151/70, respirations 18, satting 96% on room air. I's and O's show a positive balance today of 1105. She has had 1 bowel movement since admission. Weight is 51.9 kg. GENERAL: The patient is resting comfortably. Appears to be in no acute distress. CHEST: Lungs were clear to auscultation bilaterally. HEART: Regular rate and rhythm. ABDOMEN: Soft, non-tender. Positive bowel sounds. EXTREMITIES: Without any edema. Distally pulses are strong. Capillary refill is brisk. Right hip shows [address] with no signs of infection. There is some small areas of ecchymosis around each site. No other areas showing edema or ecchymosis. NEUROLOGIC: She is alert and oriented times three. INTEGUMENT: As noted above, just a few small areas of ecchymosis around the incision site with bandaids in place. No other obvious areas of blood loss or hematoma. LABORATORY: White count 6,100, hemoglobin did drop to 7.4 and 22.1 this morning with platelet count 92,000. Differential does show a left shift with 2% bands, however she is postoperative. Chemistries show sodium 132, potassium 3.8, BUN 21 which is actually down from admission of 39 with creatinine showing improvement as well down to 1.6 from initial 2.76. Calcium 7.2, corrected for 2.3 albumin is 8.5. No additional radiographic studies today. ASSESSMENT: 1. Acute intertrochanteric fracture of the right femur status post Gamma nail repair, postoperative day #2. 2. Electrolyte imbalance with a persistent hyponatremia although showing improvements. 3. Acute on chronic renal insufficiency, improving. 4. Normocytic normochromic anemia requiring transfusion of 2 units packed RBCs with no evidence of acute blood loss at this time. 5. History of atrial fibrillation with controlled ventricular rate on baby aspirin. 6. Hypertension showing to be stable. 7. Hypothyroidism on supplementation. 8. Peptic ulcer disease on Protonix. PLAN: Will transfuse the patient today with 2 units of packed red blood cells. After the units are infused will give her 20 mg of IV Lasix. She will continue with physical therapy. I have instructed the nurses to discontinue her Pagan. Will recheck labs in the morning to include an H&H and a BMP, and certainly observe for any evidence of acute blood loss. Will anticipate hopefully being able to discharge tomorrow to [facility] awaiting final acceptance on referral through her insurance, [employer]. Until then will continue to monitor and treat as needed. [facility][id number] [facility]
[2019-05-18] MEDS: KCL 20MEQ/D5NS 1,000 ML IVS PRN (05:12)
[2019-05-18] MEDS: LEVOTHYROXINE SODIUM 0.088 MG TAB PO SCH (06:45)
[2019-05-18] MEDS: PANTOPRAZOLE SODIUM TAB 40 MG PO SCH (06:45)
[2019-05-18] MEDS: LEFLUNOMIDE 10 MG PO SCH (09:50)
[2019-05-18] MEDS: CARVEDILOL 12.5 MG TAB PO SCH ×3 (09:50→21:20)
[2019-05-18] MEDS: ENOXAPARIN SODIUM 30 MG/0.3 ML SYG SUBCU SCH (09:50)
[2019-05-18] MEDS: ACETAMINOPHEN W/COD #3 TAB 1 EA TAB PO PRN (09:50)
[2019-05-18] MEDS: AMIODARONE HCL 200 MG TAB PO SCH (09:50)
[2019-05-18] MEDS: HYDROXYCHLOROQUINE SULFATE 200 MG PO SCH ×2 (09:50→21:20)
--- NOTE | 2019-05-18 13:20 | PN ---
DATE: 05/18/19 SUBJECTIVE: Ms. Jarrett is doing well. She has no significant pain. She does complaint today of pain today in the knee and she requested injection. After discussing that with her, I think it would be reasonable. OBJECTIVE: Afebrile. Vital signs stable. Wounds are clean. There are no signs or symptoms of infection. She has pain to palpation diffusely about the knee with some bruising from the previous trauma. She has full extension, crepitus throughout her range of motion and range of motion to about 90 degrees. ASSESSMENT: Status post Gamma nailing. PLAN: Under sterile conditions, her knee was injected with a mixture of lidocaine and Depo-Medrol. She is due to be discharged today and will followup on an outpatient basis. #[id number] [facility]
[2019-05-18] MEDS: NON-FORMULARY MEDICATION 1 EA MIS (Mirabegron [Myrbetriq] 25 MG) PO SCH (21:20)
[2019-05-19] MEDS: LEVOTHYROXINE SODIUM 0.088 MG TAB PO SCH (06:16)
[2019-05-19] MEDS: PANTOPRAZOLE SODIUM TAB 40 MG PO SCH (06:16)
[2019-05-19] MEDS: ENOXAPARIN SODIUM 30 MG/0.3 ML SYG SUBCU SCH (09:32)
[2019-05-19] MEDS: CARVEDILOL 12.5 MG TAB PO SCH ×3 (09:32→20:48)
[2019-05-19] MEDS: HYDROXYCHLOROQUINE SULFATE 200 MG PO SCH ×2 (09:32→20:48)
[2019-05-19] MEDS: LEFLUNOMIDE 10 MG PO SCH (09:32)
[2019-05-19] MEDS: AMIODARONE HCL 200 MG TAB PO SCH (09:33)
--- NOTE | 2019-05-19 10:29 | PN ---
DATE: 05/18/19 SUPERVISING PHYSICIAN: Ryne Felix M.D. SUBJECTIVE: The patient has been doing very well with her hip but has been complaining of some right knee pain. It was requested to have Dr. Sandoval look at it, he was able to do an injection. We are still awaiting referral to [facility], however, it did appear it was denied and I think now we are back to an appeal. OBJECTIVE: VITAL SIGNS: She remains stable. Temperature 97.9, pulse 68, blood pressure showing some elevation this morning to 217/80 but this afternoon it has been 177/80. She has been sitting a lot. Will continue to monitor closely. I&Os show negative balance of 556 with 3795 in, 4351 out. He has had a couple of bowel movements in the last couple days. Weight is at 51.9 kg. GENERAL: The patient is resting comfortably. She is alert and appears to be in no acute distress. CHEST: Lungs were clear to auscultation bilaterally. HEART: Regular rate and rhythm. ABDOMEN: Soft, non-tender. Positive bowel sounds. EXTREMITIES: Right knee is a little tender to palpation, just recently injected by Dr. Sandoval. The right hip has bandages in place which are Band-Aids with just some very small ecchymotic area. Distally pulses have strong capillary refill, brisk. NEUROLOGIC: She is alert and oriented times three. LABORATORY: Today chemistries show sodium improving at 134, potassium down a little bit to 3.0. BUN is still trending down, is at 19 with creatinine of 1.49. . ASSESSMENT: 1. Acute intertrochanteric fracture of the right femur status post Gamma nail repair, postoperative day #2. 2. Right knee pain post injection with steroids per Dr. Sandoval. 3 Electrolyte imbalance with a persistent hyponatremia but showing a trend to baseline. 4. Acute on chronic renal insufficiency, improving. 5. Normocytic normochromic anemia requiring transfusion of 2 units packed RBCs with no evidence of acute blood loss at this time. 6. History of atrial fibrillation with controlled ventricular rate on baby aspirin. 7. Hypotension showing to be slightly hypertensive. Will continue to monitor and treat as needed. 8. Hypothyroidism on supplementation. 9. Peptic ulcer disease on Protonix. PLAN: Will continue to monitor patient. Repeat hemoglobin and hematocrit in the morning. Again, did do a [id number] with [facility], however, the request for [facility] admission was denied. They are adamant that she got to a SNF setting. I believe we have now started the fill process and there is also a possibility of maybe looking at a rehab SNF unit in [facility]. Until we can transition her to outpatient rehabilitation, we will continue to monitor and treat as needed. #[id number] [facility]
[2019-05-19] MEDS ORDERED: ACETAMINOPHEN W/COD #3 TAB 1 EA TAB ONE (13:37)
[2019-05-19] MEDS: ACETAMINOPHEN W/COD #3 TAB 1 EA TAB PO PRN ×2 (13:45→20:47)
[2019-05-19] MEDS: IV SET AND CAP CHANGE INJ INJ SCH (19:20)
--- NOTE | 2019-05-19 20:31 | PN ---
DATE: 05/19/19 SUPERVISING PHYSICIAN: Ryne Felix M.D. SUBJECTIVE: The patient continues to progress well in her progress with physical therapy. She did receive an injection in the right knee which she reports significantly decreased the pain. Her pain is being well controlled in her hip. She has had no fevers. I did inform her about the denial for [facility] and discussed with her daughter as well the possibility of maybe just doing [facility] if we cannot get her to [facility], but we have an appeal in at this point and they understand that as soon as we find out from the appeal we will make appropriate changes as needed. OBJECTIVE: VITAL SIGNS: She remains stable with temperature 98.1, pulse 70, blood pressure still showing some elevation at 165/90, but she has p.r.n. Clonidine with respirations 16, satting 99% on room air. I's and O's showing a negative balance of 1290 with 810 in, 2100 out. She has had a bowel movement. GENERAL: The patient is resting comfortably, eating lunch. She appears to be in no acute distress and she is alert. CHEST: Lung sounds are clear to auscultation. HEART: Regular rate and rhythm. ABDOMEN: Soft, non-tender. Positive bowel sounds. EXTREMITIES: Distal edema right knee is just slightly swollen with no signs of infection. Right hip shows several areas with bandaids with some increasing areas of ecchymosis extending from hip to knee on lateral aspect , without kevon of active bleeding or signs of infection . NEUROLOGIC: She is alert and oriented times three. LABORATORY: No additional laboratory today. Will plan to repeat a BMP and an H&H in the morning. RADIOLOGY: No additional radiographic studies. ASSESSMENT: 1. Acute intertrochanteric fracture of the right femur status post Gamma nail repair, postoperative day #3. 2. Right knee pain post injection with steroids per Dr. Sandoval. 3 Electrolyte imbalance with a persistent hyponatremia but showing a trend to baseline. 4. Acute on chronic renal insufficiency, improving. 5. Normocytic normochromic anemia requiring transfusion of 2 units packed RBCs with no evidence of acute blood loss at this time. 6. History of atrial fibrillation with controlled ventricular rate on baby aspirin. 7. Hypotension showing to be slightly hypertensive. Will continue to monitor and treat as needed. 8. Hypothyroidism on supplementation. 9. Peptic ulcer disease on Protonix. PLAN: Will continue with current plan of care at this point. I will go ahead and recheck an H&H in the morning given her past history of bleeding and the fact that we have given her 4 units over the last week. At this point, there is no obvious signs of bleeding and I think she is stable in regards to that. She remains on low dose Lovenox, but may need to discontinue and go to a baby aspirin.. Dr. Lubin suggested when she discharges that she discharge on a baby aspirin. I will recheck an hemiglobin and hematocrit as well as bmp in the moring. Will continue to encourage deep breathing exercises and will continue to follow her as she progresses through her physical therapy efforts. Hopefully will hear from [facility] or [facility] by Tuesday on the appeal of her denial, and if not may have to consider just doing [facility] or other options, but she will need further reevaluation by Physical Therapy. Until she can transition to outpatient management will continue to monitor and treat as needed. #[id number] [facility]
[2019-05-19] MEDS: SODIUM CHLORIDE 0.9% (FLUSH) 10 ML SYG IV PRN (20:48)
[2019-05-19] MEDS: NON-FORMULARY MEDICATION 1 EA MIS (Mirabegron [Myrbetriq] 25 MG) PO SCH (20:48)
[2019-05-20] MEDS: PANTOPRAZOLE SODIUM TAB 40 MG PO SCH (06:11)
[2019-05-20] MEDS: cloNIDine HCL 0.1 MG TAB PO PRN (06:37)
[2019-05-20] MEDS: ENOXAPARIN SODIUM 30 MG/0.3 ML SYG SUBCU SCH (08:01)
[2019-05-20] MEDS: AMIODARONE HCL 200 MG TAB PO SCH (08:14)
[2019-05-20] MEDS: LEFLUNOMIDE 10 MG PO SCH (08:14)
[2019-05-20] MEDS: LEVOTHYROXINE SODIUM 0.088 MG TAB PO SCH (08:14)
[2019-05-20] MEDS: CARVEDILOL 12.5 MG TAB PO SCH ×3 (08:14→20:47)
[2019-05-20] MEDS: HYDROXYCHLOROQUINE SULFATE 200 MG PO SCH ×2 (08:15→20:47)
[2019-05-20] MEDS: POTASSIUM CHLORIDE 10 MEQ TAB PO SCH (09:48)
--- NOTE | 2019-05-20 13:28 | PN ---
DATE: 05/20/19 SUPERVISING PHYSICIAN: Ryne Felix M.D. SUBJECTIVE: The patient seems to be doing well. Her pain has been controlled. She reports that her knee is slightly improved after the injection. She did note that that area of ecchymosis seems to be seeping a little bit around the bandage, but no obvious areas of bleeding. I did discuss with her that we had checked her H&H and it appears to be stable. At this point she is not losing any significant amount of blood that we would probably transition her off of Lovenox onto baby aspirin and continue to watch closely. She has been denied [facility] admission. That appeal is still in place. Hopefully we will know something about that on Tuesday. The family is very well much in the loop of communication and there was some communication of possibly maybe just doing [facility] if we cannot get her to [facility]. OBJECTIVE: VITAL SIGNS: Showing some hypertension with temperature 98.6, pulse 68, blood pressure 190/92, respirations 16, satting 96% on room air. She has had a couple of bowel movements and weight is 51.9 kg. GENERAL: The patient is resting comfortably. Just finished some breakfast. She is alert. Shows to be in no acute distress. CHEST: Lung sounds remain clear bilaterally. HEART: Regular rate and rhythm. ABDOMEN: Soft, non-tender. Positive bowel sounds. EXTREMITIES: Shows just a trace of edema to the knee on the right. The left is without any edema. There are no signs of infection in the knee and the right hip shows again several areas with bandaids with large areas of ecchymosis that extend from the hip down to just above the knee and to the posterior aspect of the thigh. It did look like she had some seepage from one of the sites with some blood but not any significant amount. NEUROLOGIC: She is alert and oriented times three. LABORATORY: H&H is showing to be stable at 10 and 29.8. Chemistries show a persistent hyponatremia at 131, potassium is now normalized at 3.6, BUN is elevated at 35, creatinine is 1.63, calcium 7.8 but previous albumin was 2.3 which corrected to about 8.5. RADIOLOGY: No additional radiographic studies. ASSESSMENT: 1. Acute intertrochanteric fracture of the right femur status post Gamma nail repair, postoperative day #4. 2. Right knee pain post injection with steroids per Dr. Sandoval with some slight improvement post injection. 3 Electrolyte imbalance with a persistent hyponatremia but showing a trend to baseline. 4. Acute on chronic renal insufficiency showing some initial improvement, but slight elevation today probably just due to lack of oral intake and being on the dry side. 5. Normocytic normochromic anemia requiring transfusion of 2 units packed RBCs with no evidence of acute blood loss at this time. 6. History of atrial fibrillation with controlled ventricular rate on baby aspirin. 7. Hypertension poorly controlled. Will utilize p.r.n. Clonidine and closely monitor. May need to modify her hypertensive medication regimen slightly. 8. Hypothyroidism on supplementation. 9. Peptic ulcer disease on Protonix. PLAN: Will continue current plan of care with continued rehabilitation and physical therapy efforts. In regards to the ecchymosis on the right hip, will continue to monitor that closely. Given that she has a history of bleeding that is being followed by Dr. Whyte, at this point I am going to hold her Lovenox and will start her on some baby aspirin in the morning. The plan would be to discharge her home on aspirin. We may need to follow with Dr. Whyte and confirm that that is adequate. Actually after talking to Dr. Sandoval, he is okay with that for prophylaxis. I have encouraged her to increase her oral intake to help with her kidney function. Will hopefully be able to get her accepted at [facility] tomorrow and again if we cannot, possible consideration for [facility]. I did talk to the family and there was mention of something about [facility] and they were adamant that that was not going to be an option, so I am not sure exactly where that discussion originated from. Will continue with pain management as needed. She will get reevaluation on Tuesday for physical therapy. Hopefully will assist in getting [employer] to approve her for inpatient rehab. Until then will continue to monitor and treat as needed. #[id number] [facility]
[2019-05-20] MEDS: NON-FORMULARY MEDICATION 1 EA MIS (Mirabegron [Myrbetriq] 25 MG) PO SCH (20:47)
[2019-05-20] MEDS: SODIUM CHLORIDE 0.9% (FLUSH) 10 ML SYG IV PRN (20:47)
[2019-05-20] MEDS: ACETAMINOPHEN W/COD #3 TAB 1 EA TAB PO PRN (23:04)
[2019-05-21] MEDS: PANTOPRAZOLE SODIUM TAB 40 MG PO SCH (06:22)
[2019-05-21] MEDS: LEVOTHYROXINE SODIUM 0.088 MG TAB PO SCH (06:22)
[2019-05-21] MEDS: POTASSIUM CHLORIDE 10 MEQ TAB PO SCH (08:37)
[2019-05-21] MEDS: CARVEDILOL 12.5 MG TAB PO SCH ×3 (08:37→20:56)
[2019-05-21] MEDS: HYDROXYCHLOROQUINE SULFATE 200 MG PO SCH ×2 (08:37→20:49)
[2019-05-21] MEDS: AMIODARONE HCL 200 MG TAB PO SCH (08:37)
[2019-05-21] MEDS: LEFLUNOMIDE 10 MG PO SCH (08:38)
[2019-05-21] MEDS: ENOXAPARIN SODIUM 30 MG/0.3 ML SYG SUBCU SCH (11:21)
--- NOTE | 2019-05-21 15:04 | PN ---
SUPERVISING PHYSICIAN: Francisco Lubin MD DATE: 05/21/19 SUBJECTIVE: The patient is sitting up in her chair. She has no complaints of shortness of breath, nausea, vomiting or diarrhea. She feels like she is getting around well. She has started using her walker. OBJECTIVE: VITAL SIGNS: Temperature 97.9. Heart rate 70. Blood pressure 148/82. Respiratory rate 17. O2 saturation 96% on room air. RESPIRATORY: Essentially clear to auscultation bilaterally. CARDIAC: Regular rate and rhythm. GASTROINTESTINAL: Abdomen is soft, nondistended, nontender. Bowel sounds are positive. EXTREMITIES: She has a dressing to her right lateral hip that has a small amount of serous fluid on it. Otherwise, it is dry and intact. Bilateral pedal pulses are palpable at +2. NEUROLOGIC: Awake, alert and oriented times three. LABORATORY: Hemoglobin and hematocrit have improved today to 10.8 and 32.4. Sodium 133, potassium 3, chloride 103, carbon dioxide 22, BUN 46, creatinine 1.91, glucose 116, calcium 8, magnesium 1.8. All other labs and films have been reviewed via the EMR. ASSESSMENT: 1. Acute intertrochanteric fracture of the right femur status post Gamma nail repair, postoperative day #7. 2. Right knee pain post injection with steroids per Dr. Sandoval with some slight improvement post injection. 3 Electrolyte imbalance with a persistent hyponatremia but showing a trend to baseline. 4. Acute on chronic renal insufficiency showing some initial improvement, but slight elevation today probably just due to lack of oral intake and being on the dry side. 5. Normocytic/normochromic anemia requiring transfusion of 2 units packed RBCs with no evidence of acute blood loss at this time. 6. History of atrial fibrillation with controlled ventricular rate on baby aspirin. 7. Hypertension poorly controlled. Will utilize p.r.n. clonidine and closely monitor. May need to modify her hypertensive medication regimen slightly. 8. Hypothyroidism on supplementation. 9. Peptic ulcer disease on Protonix. PLAN: We will continue present supportive care. I will continue to monitor her H&H tomorrow to make sure the patient does not need to be transfused any blood. We are awaiting an appeal to [employer] for the patient go to [facility] or [facility]. I did speak with Dr. Whyte, her fisher, today and she felt if she could stay on Lovenox until she is up and moving well and then transition to aspirin prophylactically, it would be the best for postoperative anticoagulation. The plan is to have her on Lovenox today and tomorrow and then change to aspirin on Tuesday as it has been reported that the patient is using her walker to get to and from the bathroom. She started that today. Hopefully she can be discharged in the next several days to a rehabilitation facility to help with her strengthening and conditioning. Until then, continue to monitor the patient closely and follow as needed. #[id number] [facility]
[2019-05-21] MEDS: NON-FORMULARY MEDICATION 1 EA MIS (Mirabegron [Myrbetriq] 25 MG) PO SCH (20:49)
[2019-05-21] MEDS: SODIUM CHLORIDE 0.9% (FLUSH) 10 ML SYG IV PRN (20:49)
[2019-05-22] MEDS: LEVOTHYROXINE SODIUM 0.088 MG TAB PO SCH (06:14)
[2019-05-22] MEDS: PANTOPRAZOLE SODIUM TAB 40 MG PO SCH (06:14)
[2019-05-22] MEDS: LEFLUNOMIDE 10 MG PO SCH (08:36)
[2019-05-22] MEDS: POTASSIUM CHLORIDE 10 MEQ TAB PO SCH (08:37)
[2019-05-22] MEDS: AMIODARONE HCL 200 MG TAB PO SCH (08:37)
[2019-05-22] MEDS: CARVEDILOL 12.5 MG TAB PO SCH ×3 (08:37→20:20)
[2019-05-22] MEDS: HYDROXYCHLOROQUINE SULFATE 200 MG PO SCH ×2 (08:37→20:19)
[2019-05-22] MEDS: ACETAMINOPHEN W/COD #3 TAB 1 EA TAB PO PRN (08:37)
[2019-05-22] MEDS: levoFLOXacin 500 MG TAB PO SCH (09:24)
[2019-05-22] MEDS: ENOXAPARIN SODIUM 30 MG/0.3 ML SYG SUBCU SCH (11:28)
[2019-05-22] MEDS: IV SET AND CAP CHANGE INJ INJ SCH (18:44)
[2019-05-22] MEDS: NON-FORMULARY MEDICATION 1 EA MIS (Mirabegron [Myrbetriq] 25 MG) PO SCH (20:20)
--- NOTE | 2019-05-22 21:00 | PN ---
DATE: 05/22/19 SUPERVISING PHYSICIAN: Francisco Lubin M.D. SUBJECTIVE: The patient is sitting up in her chair. She has no complaints of shortness of breath, chest pain, nausea, vomiting, diarrhea. Feels like she is getting around well with her walker. We discussed her H&H in that her blood count had actually gone up yesterday and will repeat her H&H in the morning. Again, we are waiting and it is okay for her to go to [facility]. OBJECTIVE: VITAL SIGNS: Temperature 99.2, heart rate 68, blood pressure 109/66, respiratory rate 16, O2 sat 97% on room air. RESPIRATORY: She is clear to auscultation bilaterally. CARDIAC: Regular rate and rhythm. GASTROINTESTINAL: Abdomen is soft, nondistended, non-tender. Bowel sounds are positive. EXTREMITIES: She has a dressing to the right lateral hip that has a small amount of serous drainage on it, but otherwise it is dry and intact. Bilateral pedal pulses are palpable at +2. NEUROLOGIC: She is awake, alert and oriented times three. LABORATORY: There are no labs or films to review at this time. ASSESSMENT: 1. Acute intertrochanteric fracture of the right femur status post Gamma nail repair, postoperative day #8. 2. Right knee pain post injection with steroids per Dr. Sandoval with some slight improvement post injection. 3 Electrolyte imbalance with a persistent hyponatremia but showing a trend to baseline. 4. Acute on chronic renal insufficiency showing some initial improvement, but slight elevation today probably just due to lack of oral intake and being on the dry side. 5. Normocytic/normochromic anemia requiring transfusion of 2 units packed RBCs with no evidence of acute blood loss at this time. 6. History of atrial fibrillation with controlled ventricular rate on baby aspirin. 7. Hypertension poorly controlled. Will utilize p.r.n. clonidine and closely monitor. May need to modify her hypertensive medication regimen slightly. 8. Hypothyroidism on supplementation. 9. Peptic ulcer disease on Protonix. PLAN: We will continue present supportive care. She will continue with physical therapy for strengthening and conditioning. Orthopedic issues will be per Dr. Grayson Sandoval, orthopedic surgeon. I will repeat an H&H in the morning to make sure the patient is not having any acute bleeding. We are still waiting the appeal to [facility] for the patient to go to [facility] or to our [facility] for strengthening and conditioning. Tomorrow she will start her aspirin and today is her last day of Lovenox per the recommendation of Dr. Whyte, her accounts payable professional. She will have 35 days of combined Lovenox and aspirin for post procedure anticoagulation. Hopefully we will hear tomorrow or the next day for discharge. Until then will continue to monitor closely and follow as needed. #[id number] [facility]
[2019-05-23] MEDS: cloNIDine HCL 0.1 MG TAB PO PRN (01:49)
[2019-05-23] MEDS: PANTOPRAZOLE SODIUM TAB 40 MG PO SCH (06:10)
[2019-05-23] MEDS: LEVOTHYROXINE SODIUM 0.088 MG TAB PO SCH (06:10)
[2019-05-23] MEDS: AMIODARONE HCL 200 MG TAB PO SCH (08:53)
[2019-05-23] MEDS: levoFLOXacin 500 MG TAB PO SCH (08:53)
[2019-05-23] MEDS: CARVEDILOL 12.5 MG TAB PO SCH ×3 (08:54→20:27)
[2019-05-23] MEDS: LEFLUNOMIDE 10 MG PO SCH (08:54)
[2019-05-23] MEDS: POTASSIUM CHLORIDE 10 MEQ TAB PO SCH (08:54)
[2019-05-23] MEDS: HYDROXYCHLOROQUINE SULFATE 200 MG PO SCH ×2 (08:54→20:27)
[2019-05-23] MEDS: ASPIRIN (CHEWABLE) 81 MG TAB PO SCH (08:54)
--- NOTE | 2019-05-23 09:06 | PN ---
DATE: 05/23/19 SUBJECTIVE: Ms. Jarrett is up walking today and her pain is well controlled. OBJECTIVE: Afebrile. Vital signs stable. She does have a very small amount of serous drainage from the most superior wound. There is no erythema. There is no increased warmth from the area. There is no purulence and other wounds are clean. ASSESSMENT: Status post Gamma nailing with serous drainage. PLAN: At this point, we will continue to monitor. There does not appear to be any evidence of underlying infection. Otherwise, we will continue on her current weightbearing status. #[id number] [facility]
--- NOTE | 2019-05-23 14:02 | PN ---
SUPERVISING PHYSICIAN: Francisco Lubin MD DATE: 05/23/19 SUBJECTIVE: The patient continues to do well with her physical therapy. She has actually advanced to almost down to the end of the hallway. Her H&H has been stable. We continue to await final word from [employer] as far as possible inpatient rehab versus senior care facility. OBJECTIVE: VITAL SIGNS: Stable with temperature 98.4, pulse 65, blood pressure 168/81, respirations 14, saturation 96% on room air. She has had several bowel movements. Weight is stable at 51.9 kg. GENERAL: The patient is resting comfortably and has just finished physical therapy. She appears to be in no acute distress. She is alert. CHEST: Lungs clear to auscultation bilaterally. HEART: Regular rate and rhythm. ABDOMEN: Soft, nontender. Positive bowel sounds. EXTREMITIES: Pulses distally bilaterally are strong. Capillary refill is brisk. There continues to be a large area of ecchymosis on the right hip, but without any signs of extension and no obvious areas of hemorrhage. The wound on the hip has a bandage in place with no signs of infection. NEUROLOGIC: Alert and oriented times three. LABORATORY: Hemoglobin 9.2 and hematocrit 27.0. No new chemistries or imaging studies. ASSESSMENT: 1. Acute intertrochanteric fracture of the right femur status post Gamma nail repair, postoperative day #9. 2. Right knee pain post injection with steroids per Dr. Sandoval with some slight improvement post injection. 3 Electrolyte imbalance with a persistent hyponatremia but showing a trend to baseline. 4. Acute on chronic renal insufficiency showing some initial improvement, but slight elevation today probably just due to lack of oral intake and being on the dry side. 5. Normocytic/normochromic anemia requiring transfusion of 2 units packed RBCs with no evidence of acute blood loss at this time. 6. History of atrial fibrillation with controlled ventricular rate on baby aspirin. 7. Hypertension poorly controlled. Will utilize p.r.n. clonidine and closely monitor. May need to modify her hypertensive medication regimen slightly. 8. Hypothyroidism on supplementation. 9. Peptic ulcer disease on Protonix. PLAN: I will continue to followup the patient as she progresses through physical therapy for strengthening and conditioning. We will defer orthopedic management to Dr. Sandoval. We are still awaiting final word from [employer] and [employer] regarding possible inpatient rehab versus senior care facility. She will be started on aspirin as recommended by Dr. Whyte as she has finished Lovenox. Until we can transfer her to continued outpatient rehab, we will continue to monitor and treat as needed. #[id number] [facility]
[2019-05-23] MEDS: NON-FORMULARY MEDICATION 1 EA MIS (Mirabegron [Myrbetriq] 25 MG) PO SCH (20:27)
[2019-05-24] MEDS: PANTOPRAZOLE SODIUM TAB 40 MG PO SCH (06:44)
[2019-05-24] MEDS: LEVOTHYROXINE SODIUM 0.088 MG TAB PO SCH (06:44)
--- NOTE | 2019-05-24 08:39 | PN ---
DATE: 05/24/19 SUBJECTIVE: She is doing well. The pain is minimal. OBJECTIVE: She has a very small amount of serous drainage from the superior wound. There is no erythema, no purulence and no pain. ASSESSMENT: Status post Gamma nailing. PLAN: She has developed extensive bruising. She has a well-known bleeding disorder that is being addressed by Dr. Whyte. With regards to her wounds, we will continue with current dressings and monitor for any changes. #[id number] [facility]
[2019-05-24] MEDS: CARVEDILOL 12.5 MG TAB PO SCH ×3 (09:18→21:08)
[2019-05-24] MEDS: ASPIRIN (CHEWABLE) 81 MG TAB PO SCH (09:18)
[2019-05-24] MEDS: POTASSIUM CHLORIDE 10 MEQ TAB PO SCH (09:18)
[2019-05-24] MEDS: AMIODARONE HCL 200 MG TAB PO SCH (09:18)
[2019-05-24] MEDS: levoFLOXacin 500 MG TAB PO SCH (09:18)
[2019-05-24] MEDS: HYDROXYCHLOROQUINE SULFATE 200 MG PO SCH ×2 (09:19→21:09)
[2019-05-24] MEDS: LEFLUNOMIDE 10 MG PO SCH (09:24)
[2019-05-24] MEDS: NON-FORMULARY MEDICATION 1 EA MIS (Mirabegron [Myrbetriq] 25 MG) PO SCH (21:09)
[2019-05-25] MEDS: PANTOPRAZOLE SODIUM TAB 40 MG PO SCH (06:16)
[2019-05-25] MEDS: LEVOTHYROXINE SODIUM 0.088 MG TAB PO SCH (06:16)
[2019-05-25] MEDS: cloNIDine HCL 0.1 MG TAB PO PRN (06:33)
[2019-05-25] MEDS: POTASSIUM CHLORIDE 10 MEQ TAB PO SCH (07:58)
[2019-05-25] MEDS: AMIODARONE HCL 200 MG TAB PO SCH (07:58)
[2019-05-25] MEDS: ASPIRIN (CHEWABLE) 81 MG TAB PO SCH (07:58)
[2019-05-25] MEDS: HYDROXYCHLOROQUINE SULFATE 200 MG PO SCH (07:58)
[2019-05-25] MEDS: CARVEDILOL 12.5 MG TAB PO SCH (07:58)
[2019-05-25] MEDS: levoFLOXacin 500 MG TAB PO SCH (07:58)
[2019-05-25] MEDS: LEFLUNOMIDE 10 MG PO SCH (07:59)
[2019-05-25] MEDS ORDERED: MEGESTROL ACETATE 40 MG TAB PO SCH (09:00)
[2019-05-25 13:52] VITALS: BP 106/71; TEMP 97.5; O2SAT 98
--- NOTE | 2019-05-29 14:07 | DS ---
SUPERVISING PHYSICIAN: Francisco Lubin MD DISCHARGE DIAGNOSIS: 1. Acute intertrochanteric fracture of the right femur status post Gamma nail repair, postoperative day #11. 2. Right knee pain post injection with steroids per Dr. Sandoval with some slight improvement post injection. 3 Electrolyte imbalance with a persistent hyponatremia but showing a trend to baseline. 4. Acute on chronic renal insufficiency showing some initial improvement, but slight elevation today probably just due to lack of oral intake and being on the dry side. 5. Normocytic/normochromic anemia requiring transfusion of 2 units packed RBCs with no evidence of acute blood loss at this time. 6. History of atrial fibrillation with controlled ventricular rate on baby aspirin. 7. Hypertension poorly controlled. Will utilize p.r.n. clonidine and closely monitor. May need to modify her hypertensive medication regimen slightly. 8. Hypothyroidism on supplementation. 9. Peptic ulcer disease on Protonix. HISTORY OF PRESENT ILLNESS: This is an 88-year-old female patient who lives at [facility]. She is usually very independent at home. She had some rubber-soled shoes on on the day of admission and got up from her couch. She thinks her sole caught on the carpeting and she fell. She landed on her right hip. She had severe pain to that right hip with some pain to the right knee. She was brought to the Emergency Room and her right pelvic x-ray showed her to have an acute intertrochanteric fracture of the right femur. A right knee x-ray was also done and showed knee joint effusion with no acute fracture visualized. 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 She had a previous fall with fracture to her left hip in 2013 that was repaired by Dr. Grayson Sandoval, orthopedic surgeon. The ER doctor spoke with Dr. Sandoval and he said he would be willing to do the surgical procedure on the day after admission, so I was called for hospital admission. 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 Dr. Sandoval's preoperative orders were initiated. I spoke to Dr. Lubin, her primary care physician, and he called Dr. Whyte, her commercial account executive, and she felt she could continue with surgery on low dose Lovenox and then transition to a baby aspirin after discharge. Her pain was controlled with Tylenol #3. She was also started on a proton pump inhibitor for ulcer prophylaxis. She had no problems intraoperatively. She did receive 2 units of packed red blood cells the day after her surgery due to hemoglobin 7.4 [address] Whyte was again contacted and she recommended prophylactic Lovenox and go home on aspirin 81 mg for the postoperative anticoagulation. She progressed very slowly with her physical therapy. It was recommended by Physical Therapy that she would benefit from outpatient rehab. [facility] in [place] accepted the patient. It took well over a week for them to approve her stay and today, she will be discharged to [facility] in stable condition. LABORATORY: Hemoglobin and hematocrit remained stable except the first day after surgery and it was down to 7.4 and 22.1, respectively. After administering 2 units of packed red blood cells, her hemoglobin and hematocrit came up to 10.4 and 30.4. Her last H&H was 9.2 and 27. Sodium remained slightly low between 131 and 134. Her potassium did get down to 3 and she required supplementation both times. Creatinine ran between 1.49 and 1.93. Her calcium was also slightly low and her last calcium level was 8 with a stable magnesium of 1.8. RADIOLOGY: Her postoperative x-rays are per the EMR. DISCHARGE PLAN: The patient will be discharged to [facility] in [place] in good condition. She is to resume her previous diet. Her activity will be as per Physical Therapy. She is to followup with Dr. Grayson Sandoval, orthopedic surgeon, after discharge as well as Dr. Lubin, her primary care physician, after discharge. She will resume her previous medications with the addition of 24 additional days of aspirin 81 mg for a total of 35 days of postoperative anticoagulation therapy. I spoke with Dr. Whyte today and she felt that would be sufficient coagulation therapy. Dr. Sandoval agreed. She also said she needs frequent ambulation as well as thigh-high support hose. She is to return to the hospital or followup with Dr. Sandoval or Dr. Lubin for any problems or complications. DISCHARGE MEDICATIONS: 1. Multivitamin. 2. Synthroid. 3. Flax seed. 4. Carvedilol. 5. Calcium citrate. 6. Amiodarone. 7. Clonidine. 8. Pantoprazole. 9. Potassium chloride. 10. Zofran. 11. Myrbetriq. 12. Megace. 13. Leflunomide. 14. Plaquenil. 15. Prednisone. 16. Baby aspirin. #[id number] [facility]
== END 2019-05-25 14:20 | DRG 481 ==
LOC: ER 13:44 → MS 15:26
PROVIDERS: ADMIT Nurse Practitioner Acute Care; ATTEND Nurse Practitioner Acute Care
PROC: 30233N1 Transfusion of Nonautologous Red Blood Cells into Peripheral Vein, Percutaneous Approach (ICD-10-PCS; 2019-05-14)
PROC: 3E0T3BZ Introduction of Anesthetic Agent into Peripheral Nerves and Plexi, Percutaneous Approach (ICD-10-PCS; 2019-05-14)
PROC: 0QS634Z Reposition Right Upper Femur with Internal Fixation Device, Percutaneous Approach (ICD-10-PCS; principal; 2019-05-14 13:00)
PROC: 30233N1 Transfusion of Nonautologous Red Blood Cells into Peripheral Vein, Percutaneous Approach (ICD-10-PCS; 2019-05-17)
PROC: 3E0U33Z Introduction of Anti-inflammatory into Joints, Percutaneous Approach (ICD-10-PCS; 2019-05-18)
PROC: 3E0U3BZ Introduction of Anesthetic Agent into Joints, Percutaneous Approach (ICD-10-PCS; 2019-05-18)
DX: S72.141A Displaced intertrochanteric fracture of right femur, initial encounter for closed fracture (principal); E87.1 Hypo-osmolality and hyponatremia; D68.9 Coagulation defect, unspecified; W01.0XXA Fall on same level from slipping, tripping and stumbling without subsequent striking against object, initial encounter; Y92.098 Other place in other non-institutional residence as the place of occurrence of the external cause; D64.9 Anemia, unspecified; I48.91 Unspecified atrial fibrillation; I12.9 Hypertensive chronic kidney disease with stage 1 through stage 4 chronic kidney disease, or unspecified chronic kidney disease; E03.9 Hypothyroidism, unspecified; M81.0 Age-related osteoporosis without current pathological fracture; I25.10 Atherosclerotic heart disease of native coronary artery without angina pectoris; K27.9 Peptic ulcer, site unspecified, unspecified as acute or chronic, without hemorrhage or perforation; K21.9 Gastro-esophageal reflux disease without esophagitis; N28.9 Disorder of kidney and ureter, unspecified; N18.9 Chronic kidney disease, unspecified; M16.11 Unilateral primary osteoarthritis, right hip; E87.6 Hypokalemia; M25.561 Pain in right knee; J45.909 Unspecified asthma, uncomplicated; Z95.0 Presence of cardiac pacemaker; Z88.1 Allergy status to other antibiotic agents; Z88.8 Allergy status to other drugs, medicaments and biological substances; Z79.899 Other long term (current) drug therapy

== ENCOUNTER → 2019-06-14 | Outpatient (CLI) | payer OTHER ==
--- NOTE | 2019-06-14 12:09 | RAD ---
PROVIDED CLINICAL HISTORY/REASON FOR EXAM: M25.551 Findings: Number of images: Two Location: Right hip Healing internally fixated right femoral intertrochanteric fracture with stable alignment. No new fracture. No hardware complication. Soft tissues are unremarkable. Osteopenia. IMPRESSION: Healing internally fixated right femoral intertrochanteric fracture. No hardware complication. Electronically signed by: Marco Lee MD 06/14/2019 12:07 PM CDT
== END ==
LOC: RAD 09:52
PROVIDERS: ATTEND Orthopaedic Surgery
DX: S72.144D Nondisplaced intertrochanteric fracture of right femur, subsequent encounter for closed fracture with routine healing (principal)

== ENCOUNTER 2019-06-28 14:21 | Inpatient (IN) | payer OTHER ==
[2019-06-28] MEDS ORDERED: KCL 40 MEQ/WATER FOR INJ 100ML 40 MEQ in PREMIX BAG 1 BAG IVPB ONE (14:38)
--- NOTE | 2019-06-28 15:27 | ED.PDOC ---
History of Present Illness - General Chief Complaint: General Stated Complaint: HYPOKALEMIA Time Seen by Provider: 06/28/19 14:35 Source: patient, family Exam Limitations: no limitations - History of Present Illness Initial Comments: Patient presents from her pcp's office, Dr. Lubin, where she was found to have a potassium of 2.2. She had hip surgery in the past 5 weeks and says that she has had several syncopal events with falls. She has a generalized feeling of weakness. She is not sure if she hit her head during the falls. She Takes an ASA but no other anticoagulants. She says that she is "an easy bleeder" as she often gets bruises. She has a vague midsternal chest pressure today but she is unsure how long it has been going on. No dyspnea. Denies history of DVT or PE. No other complaints. Timing/Duration: changing over time, intermittent Severity: moderate Improving Factors: nothing Worsening Factors: nothing Associated Symptoms: other - as in HPI Allergies/Adverse Reactions: Allergies Ofloxacin [From Floxin] Allergy (Verified 05/13/19 18:25) Propafenone Allergy (Verified 05/13/19 18:25) Home Medications: Ambulatory Orders Carvedilol 6.25 mg PO BID 04/15/14 Flaxseed (Linseed) [Flax Seed Oil] 1,000 mg PO DAILY 04/15/14 Levothyroxine Sodium [Synthroid] 0.088 mg PO DAILY 04/15/14 Multiple Vitamins W/ Minerals [Multi Complete] 1 ea PO DAILY 04/15/14 Amiodarone HCl 200 mg PO DAILY 05/20/17 Hydroxychloroquine Sulfate [Plaquenil] 200 mg PO BID 05/13/19 Leflunomide 10 mg PO DAILY 05/13/19 Megestrol Acetate 20 mg PO BID 05/13/19 Mirabegron [Myrbetriq] 25 mg PO DAILY 05/13/19 Ondansetron HCl [Zofran] 4 mg PO PRN PRN 05/13/19 Pantoprazole Tablet [Protonix] 40 mg PO BID 05/13/19 Potassium Chloride [Klor-Con Sprinkle] 10 meq PO DAILY 05/13/19 predniSONE 10 mg PO MOTH@0900 05/13/19 Acetaminophen [Tylenol] 1,000 mg PO Q6H PRN 06/28/19 Calcium Citrate [Calcitrate] 950 mg PO DAILY 06/28/19 Clonidine HCl 0.1 mg PO DAILY PRN 06/28/19 Hydrochlorothiazide 12.5 mg PO DAILY 06/28/19 Review of Systems - Review of Systems Constitutional: States: see HPI, weakness EENTM: States: no symptoms reported Respiratory: States: no symptoms reported Cardiology: States: see HPI Gastrointestinal/Abdominal: States: no symptoms reported Genitourinary: States: no symptoms reported Musculoskeletal: States: see HPI Skin: States: no symptoms reported Neurological: States: see HPI Endocrine: States: no symptoms reported Hematologic/Lymphatic: States: see HPI Past Medical History (General) - Patient Medical History Hx Seizures: No Hx Stroke: No Hx Dementia: No Hx Asthma: No Hx of COPD: No Hx Cardiac Disorders: Yes - atrial fibrillation Hx Congestive Heart Failure: No Hx Pacemaker: Yes - hx A fib Hx Hypertension: Yes Hx Thyroid Disease: Yes Hx Diabetes: No Hx Gastroesophageal Reflux: Yes Hx Renal Disease: No Hx Cancer: No Hx of HIV: No Hx Hepatitis C: No Hx MRSA: No Surgical History: appendectomy, cholecystectomy, tonsillectomy, Hysterectomy, other - Vaccination History Hx Tetanus, Diphtheria Vaccination: Yes Hx Influenza Vaccination: Yes Hx Pneumococcal Vaccination: Yes - Social History Hx Tobacco Use: No Hx Chewing Tobacco Use: No Hx Alcohol Use: No Hx Substance Use: No Hx Substance Use Treatment: No Hx Depression: No Hx Physical Abuse: No Hx Emotional Abuse: No Hx Suspected Abuse: No - Activities of Daily Living Assisted/Assisted Living (if applicable):: [facility] Family Medical History - Family History Mother Family History: No Known Living Status: Age at (years of age): 98 Cause of : pneumonia Father Family History: No Known Living Status: Age at (years of age): 64 Cause of : surgical complications Sister Family History: Unknown Living Status: Cause of : Lung Cancer Physical Exam - Physical Exam General Appearance: Alert Eye Exam: bilateral normal Ears, Nose, Throat: normal ENT inspection Neck: non-tender, full range of motion, supple Respiratory: lungs clear, normal breath sounds Cardiovascular/Chest: normal peripheral pulses, regular rate, rhythm, other - right LE, 1+ non-pitting edema to knee. LLE, chronic dark discoloration Gastrointestinal/Abdominal: normal bowel sounds, non tender, soft Back Exam: normal inspection, no CVA tenderness Extremity: normal range of motion, non-tender, normal inspection Neurologic: risk management director II-XII nml as tested, no motor/sensory deficits, alert, normal mood/affect, oriented x 3 Skin Exam: other - purplish discoloration of LLE, bruising on arms Lymphatic: no adenopathy Progress - Progress Progress: 06/28/19 17:47 Laboratory Tests 06/28/19 06/28/19 06/28/19 15:30 15:30 17:02 PT 10.0 INR 1.00 PTT (SP) 23.5 D-Dimer, Quantitative 1.86 H* Creatine Kinase 136 CK-MB (CK-2) 3.8 Troponin I 0.07 H* 0.06 H Troponin slightly elevated but repeat showed no upward trend. EKG showed NSR with no ST changes. Mildly flattened T waves. No LBBB. Potassium was 2.2. Cr 2.9. Bilateral LE US showed no evidence of DVT. Patient was started on potassium chloride 40 meq over four hours and NS at 150 ml/hr. She was admitted for dehydration and hypokalemia by Cassandra Newman. Departure - Departure Clinical Impression: Hypokalemia, Dehydration, Syncope Disposition: Admit Patient Condition: Fair Departure Forms: ED Discharge - Pt. Copy, Patient Portal Self Enrollment Diet: other - as per hospitalist Activity: as per physical therapy Referrals: Francisco Lubin MD [Primary Care Provider] - 1-2 Weeks Home Medications: Ambulatory Orders Carvedilol 6.25 mg PO BID 04/15/14 Flaxseed (Linseed) [Flax Seed Oil] 1,000 mg PO DAILY 04/15/14 Levothyroxine Sodium [Synthroid] 0.088 mg PO DAILY 04/15/14 Multiple Vitamins W/ Minerals [Multi Complete] 1 ea PO DAILY 04/15/14 Amiodarone HCl 200 mg PO DAILY 05/20/17 Hydroxychloroquine Sulfate [Plaquenil] 200 mg PO BID 05/13/19 Leflunomide 10 mg PO DAILY 05/13/19 Megestrol Acetate 20 mg PO BID 05/13/19 Mirabegron [Myrbetriq] 25 mg PO DAILY 05/13/19 Ondansetron HCl [Zofran] 4 mg PO PRN PRN 05/13/19 Pantoprazole Tablet [Protonix] 40 mg PO BID 05/13/19 Potassium Chloride [Klor-Con Sprinkle] 10 meq PO DAILY 05/13/19 predniSONE 10 mg PO MOTH@0900 05/13/19 Acetaminophen [Tylenol] 1,000 mg PO Q6H PRN 06/28/19 Calcium Citrate [Calcitrate] 950 mg PO DAILY 06/28/19 Clonidine HCl 0.1 mg PO DAILY PRN 06/28/19 Hydrochlorothiazide 12.5 mg PO DAILY 06/28/19 Critical Care Note - Critical Care Note Total Time (mins): 65
--- NOTE | 2019-06-28 16:15 | US ---
PROVIDED CLINICAL HISTORY/REASON FOR EXAM: edema s/p orthopedic surgery in last 5 weeks COMPARISON STUDY: None available. TECHNIQUE: Venous duplex examination using B-mode, color flow and spectral Doppler was performed. FINDINGS: Bilateral lower extremity grayscale and Doppler venous ultrasound demonstrates normal luminal compressibility and color flow without evidence of intraluminal thrombus of the common femoral vein, femoral vein, and popliteal vein.. The posterior tibial and peroneal veins are unremarkable. IMPRESSION: No evidence of DVT within venous structures of the bilateral lower extremities. Electronically signed by: Marco Lee MD 06/28/2019 4:13 PM CDT
[2019-06-28] MEDS ORDERED: KCL 40 MEQ/WATER FOR INJ 100ML 100 ML IVPB ONE (16:20)
--- NOTE | 2019-06-28 16:46 | RAD ---
EXAM DESCRIPTION: Pelvis CLINICAL HISTORY: falls, recent hip surgery COMPARISON: 14 May 2019 TECHNIQUE: AP pelvis FINDINGS: 3 pins are seen through the left femoral neck. A gamma nail is seen on the right bridging an intertrochanteric fracture of the right hip. No hardware failure is seen. Callus formation is observed at the fracture site on the right. No pelvic fracturing is seen. Degenerative changes are seen in the pubic symphysis. IMPRESSION: There is evidence of orthopedic surgery in both hips. No recent or new fracturing is detected. Electronically signed by: Jett Mccurdy MD 06/28/2019 4:44 PM CDT
--- NOTE | 2019-06-28 16:47 | RAD ---
EXAM DESCRIPTION: Chest,1 View CLINICAL HISTORY: syncope COMPARISON: 19 May 2017 TECHNIQUE: AP portable chest FINDINGS: Cardiomegaly is evident. A pacemaker with atrial and ventricular leads is seen. The lungs are free of acute infiltrate or evidence of effusion. IMPRESSION: Cardiomegaly is observed without evidence of congestive heart failure. Electronically signed by: Jett Mccurdy MD 06/28/2019 4:45 PM CDT
[2019-06-28] MEDS ORDERED: SODIUM CHLORIDE 0.9% 1000ML 1,000 ML IVS PRN ×2 (17:47→18:42)
[2019-06-28] MEDS ORDERED: LABETALOL INJ 5 MG/ML VIAL ONE (18:21)
[2019-06-28] MEDS ORDERED: METOPROLOL TARTRATE INJ 5 MG/5 ML VIAL IV ONE (18:21)
--- NOTE | 2019-06-28 19:16 | CT ---
EXAM DESCRIPTION: Head CLINICAL HISTORY: 88 years Female syncope, HTN COMPARISON: July 13, 2009. TECHNIQUE: Images were obtained in axial, sagittal, and coronal planes. This exam was performed according to our departmental dose-optimization program which includes use of Automated Exposure Control, adjustment of the mA and/or kV according to patient size and/or use of iterative reconstruction technique. FINDINGS: Ventricular system is mildly enlarged. Moderate prominence of the cortical sulci. Moderate cerebral volume loss. 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 Moderate to marked decreased attenuation periventricular the white matter consistent with more remote microvascular ischemic change. No abnormal areas of increased attenuation seen. No extra-axial fluid collections noted. No evidence for skull fracture. Symmetric aeration mastoid air cells bilaterally. Unremarkable paranasal sinuses. IMPRESSION: No acute intracranial abnormality. No evidence for hemorrhage, mass lesion, or large acute infarction. More remote microvascular ischemic change progressed when correlated with the prior study. Old lacunar infarcts basal ganglionic regions again noted. Electronically signed by: Alexandra Vaughn MD 06/28/2019 7:14 PM CDT
--- NOTE | 2019-06-28 20:20 | HP ---
SUPERVISING PHYSICIAN: Pj Longoria MD CHIEF COMPLAINT: Syncopal episode. HISTORY OF PRESENT ILLNESS: This is an 88-year-old female patient who resides at [facility]. She had some routine blood work with her [facility] today and her potassium was at 2.5. Dr. Lubin' office was contacted and his office advised her to come to the Emergency Room. She also had two syncopal episodes yesterday. She did not lose consciousness, she just slumped over into her chair. There was no apparent injury. Her daughter did say that she has had these syncopal episodes in the past when her potassium or sodium were really low. She had a right hip fracture approximately six weeks ago with a Gamma nail repair. She does have some sort of unknown hematologic disorder related to anticoagulant therapy. She is followed by Dr. Whyte in [place]. Today, her initial lab from [facility] showed WBC 5,500 with hemoglobin 10, hematocrit 28.8. Sodium 127, potassium 2.5, chloride 92, BUN 47, creatinine 2.79. Serum osmolality 267.3. Cardiac enzymes were all negative with the exception of her troponin was 0.07. Her vital signs showed a temperature of 99.7, heart rate 70, blood pressure 129/87, respiratory rate 18, O2 saturation 97%. She was given fluids initially. Her blood pressure then sometime later went up to 200/98. She was given some labetalol. Shortly thereafter, it came down to 187/106. After that, it came down to 179/84. Her PT was 10, INR 1, PTT 23.5, D-dimer 1.86. She was experiencing no shortness of breath or respiratory symptoms. Due to her elevated creatinine, a CTA was unable to be performed. Bilateral lower extremity Dopplers were ordered with no evidence of DVT within the venous structures of the bilateral lower extremities. Chest x-ray was also done which showed cardiomegaly observed without evidence of congestive heart failure. She also had a pelvis x-ray which showed evidence of orthopedic surgery in both hips, no recent or new fractures detected. A head CT was also completed which showed no acute intracranial abnormality, no evidence of hemorrhage, mass lesion or large acute infarction. More remote microvascular ischemia changes. Change progressed when correlated with prior study. 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 She was also given some IV potassium supplementation and I was called for hospital admission. PAST MEDICAL HISTORY: 1. Seasonal allergies. 2. Atrial fibrillation on amiodarone and carvedilol. 3. Hypertension. 4. Hypothyroidism. 5. Osteoporosis. 6. Peptic ulcer disease 7. Coronary artery disease. 8. Brain meningioma. 9. Pulmonary nodule. 10. Subdural hematoma after a fall in 2016. 11. 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 Whyte, forming process line worker in [place]. PAST SURGICAL HISTORY: 1. Appendectomy. 2. Biopsy of the breast x3. 3. Bilateral cataract removal. 4. Hysterectomy. 5. Tonsillectomy and adenoidectomy. 6. 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 7. Pacemaker implantation. OUTPATIENT MEDICATIONS: Per the EMR and awaiting verification. ALLERGIES: OFLOXACIN, PROPAFENONE. FAMILY HISTORY: Noncontributory. SOCIAL HISTORY: She is retired. She is . She lives at [facility]. She denies any tobacco, ETOH or illicit drug use. REVIEW OF SYSTEMS: GENERAL: Negative for fever, chills or weight changes. HEENT: Negative for sinus symptoms, ear pain, vision changes or sore throat. RESPIRATORY: Negative for wheezing, coughing or shortness of breath. CARDIAC: Negative for chest pain, palpitations or tachycardia. GASTROINTESTINAL: Negative for nausea, vomiting, diarrhea, constipation. GENITOURINARY: Negative for hematuria, dysuria or polyuria. SKIN: Negative for lesions or rashes. NEUROLOGIC: Positive for weakness and syncopal episode. Negative for headache or seizures. PHYSICAL EXAMINATION: VITAL SIGNS: Temperature 97.8. Heart rate 70. Blood pressure 179/84. Respiratory rate 18. O2 saturation 98% on room air. GENERAL: This is an 88-year-old female patient lying in her hospital bed. She is in no acute distress. HEENT: Normocephalic, atraumatic. Pupils are equal and reactive. Oropharynx is clear. NECK: Supple without mass. RESPIRATORY: Essentially clear to auscultation bilaterally. CHEST: There is equal rise and fall of the chest with inspiration and expiration. CARDIOVASCULAR: Regular rate and rhythm. GASTROINTESTINAL: Abdomen is soft, nondistended, nontender. Bowel sounds are positive. EXTREMITIES: No cyanosis, clubbing or edema. NEUROLOGIC: Awake, alert and oriented times three. Cranial nerves II-XII are grossly intact. LABORATORY: Labs and films are as per history of present illness with the exception of followup chemistry shows sodium 125, potassium 2.2, chloride 90, BUN 46, creatinine 2.91. Followup troponin was 0.06. Urinalysis was unremarkable. IMPRESSION: 1. Acute on chronic kidney injury with admitting creatinine of 2.91. Her baseline creatinine is 2. 2. Electrolyte imbalance, especially low potassium with level of 2.2 and hyponatremia of 125. 3. Syncopal episodes with no loss of consciousness or traumatic injury. 4. Recent right hip fracture about six weeks ago with Gamma nail repair. 5. 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 She is followed by Dr. Whyte, forming process line worker in [place]. 6. History of atrial fibrillation with currently controlled. She is on amiodarone and Coreg. 7. Hypertensive crisis requiring labetalol. She has a history of hypertension. 8. Hypertension, currently on medications. 9. Hypothyroidism on supplementation. PLAN: The patient has been admitted to the hospital. I will give her fluids overnight and hopefully correct her kidney function. She will also receive supplementation of potassium overnight and we will recheck her labs in the morning. I have done neuro checks and she may at some point benefit from a CTA of the brain or an MRI of the brain. Due to her bleeding disorder, I will only put her on an 81 mg aspirin for DVT prophylaxis as this is what she was on after her hip surgery. I have put her on a proton pump inhibitor for ulcer prophylaxis. Her home medications will be restarted as soon as they are verified. She will also be on the cardiac cath technician due to her atrial fibrillation. She has clonidine as needed for any elevated blood pressures and will monitor those overnight. We will continue to monitor the patient closely and follow as needed. #[id number] [facility]
[2019-06-28] MEDS ORDERED: SODIUM CHLORIDE 0.9% (FLUSH) 10 ML SYG IV PRN (21:23)
[2019-06-28] MEDS ORDERED: ONDANSETRON INJ 4 MG/2 ML VIAL IV PRN (21:23)
[2019-06-28] MEDS ORDERED: ACETAMINOPHEN 500 MG TAB PO PRN (21:27)
[2019-06-28] MEDS ORDERED: cloNIDine HCL 0.1 MG TAB PO PRN (21:27)
[2019-06-28] MEDS ORDERED: NON-FORMULARY MEDICATION 1 EA MIS (Carvedilol [Carvedilol] 6.25 MG) PO SCH (21:30)
[2019-06-28] MEDS ORDERED: IV SET AND CAP CHANGE INJ INJ SCH (21:30)
[2019-06-28] MEDS ORDERED: CARVEDILOL 3.125 MG TAB ONE (21:43)
[2019-06-28] MEDS ORDERED: PANTOPRAZOLE SODIUM TAB 40 MG PO SCH (22:00)
[2019-06-28] MEDS: HYDROXYCHLOROQUINE SULFATE 200 MG PO SCH (22:03)
[2019-06-28] MEDS ORDERED: KCL 20MEQ/WATER FOR INJ 100ML 20 MEQ in PREMIX BAG 1 BAG IVPB ONE (22:20)
[2019-06-28] MEDS ORDERED: KCL 20MEQ/WATER FOR INJ 100ML 100 ML IVPB ONE (23:57)
[2019-06-29] MEDS ORDERED: POTASSIUM CHLORIDE 20 MEQ TAB PO ONE (06:03)
[2019-06-29] MEDS ORDERED: KCL 20MEQ/WATER FOR INJ 100ML 20 MEQ in PREMIX BAG 1 BAG IVPB ONE (06:10)
[2019-06-29] MEDS ORDERED: KCL 20MEQ/WATER FOR INJ 100ML 100 ML IVPB ONE (06:25)
[2019-06-29] MEDS ORDERED: LEVOTHYROXINE SODIUM 0.088 MG TAB PO SCH (06:30)
[2019-06-29] MEDS ORDERED: MEGESTROL ACETATE 20 MG PO SCH (09:00)
[2019-06-29] MEDS: NON-FORMULARY MEDICATION 1 EA MIS (Leflunomide [Leflunomide] 10 MG) PO SCH (09:19)
[2019-06-29] MEDS: HYDROXYCHLOROQUINE SULFATE 200 MG PO SCH ×2 (09:19→20:21)
[2019-06-29] MEDS: SODIUM CHLORIDE 0.9% (FLUSH) 10 ML SYG IV SCH ×2 (09:20→20:21)
[2019-06-29] MEDS: hydroCHLOROthiazide 12.5 MG CAP PO SCH (09:20)
[2019-06-29] MEDS: POTASSIUM CHLORIDE 10 MEQ TAB PO SCH (09:20)
[2019-06-29] MEDS: CARVEDILOL 3.125 MG TAB PO SCH ×2 (09:20→20:21)
[2019-06-29] MEDS: ASPIRIN (CHEWABLE) 81 MG TAB PO SCH (09:20)
[2019-06-29] MEDS: PANTOPRAZOLE SODIUM TAB 40 MG PO SCH ×2 (09:20→17:15)
[2019-06-29] MEDS: AMIODARONE HCL 200 MG TAB PO SCH (09:20)
[2019-06-29] MEDS: NON-FORMULARY MEDICATION 1 EA MIS (Mirabegron [Myrbetriq] 25 MG) PO SCH (09:21)
[2019-06-29] MEDS: MEGESTROL ACETATE 40 MG TAB PO SCH ×3 (09:36→20:26)
[2019-06-29] MEDS: KCL 40MEQ/NS 1,000 ML IVS PRN (12:53)
--- NOTE | 2019-06-29 16:41 | PN ---
DATE: 06/29/19 SUPERVISING PHYSICIAN: Pj Longoria M.D. SUBJECTIVE: The patient is sitting in the bedside chair just having finished lunch. She has no complaints. She does continue to have a low potassium but has not had any chest pains, shortness of breath. OBJECTIVE: VITAL SIGNS: Temperature 98.3, pulse 70, blood pressure 147/84, respirations 16, satting 99% on room air. I's and O's show a negative balance of 230. Weight is 46.0 kg. GENERAL: The patient appears to be in no acute distress. She is resting comfortably. She is alert. CHEST: Lungs are clear to auscultation. HEART: Regular rate and rhythm. ABDOMEN: Soft, non-tender. Positive bowel sounds. EXTREMITIES: Show no edema. Left leg shows discoloration from ecchymosis which is old. NEUROLOGIC: She is alert and oriented times three. LABORATORY: White count 6,700, hemoglobin 10.1, hematocrit 29.4, platelet count 132,000. Differential shows to have just a slight left shift. Chemistries show sodium 127 today with potassium 2.6, carbon dioxide 20, BUN 42, creatinine was down to 2.52, calcium 8.2. Liver functions all showed to be within normal limits. RADIOLOGY: No additional radiographic studies. ASSESSMENT: 1. Acute on chronic kidney injury with admitting creatinine of 2.91. Her baseline creatinine is 2 improving with fluids. 2. Electrolyte imbalance, especially low potassium with level of 2.2 and hyponatremia of 125 continuing to need oral and parenteral replacement. 3. Syncopal episodes with no loss of consciousness or traumatic injury with no reported syncopal episodes during current admission. 4. Recent right hip fracture about six weeks ago with Gamma nail repair. 5. 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 She is followed by Dr. Whyte, metal grader in [place]. 6. History of atrial fibrillation with currently controlled. She is on amiodarone and Coreg. 7. Hypertensive crisis requiring labetalol. She has a history of hypertension. 8. Hypertension, currently on medications. 9. Hypothyroidism on supplementation. PLAN: Will continue to monitor laboratory values closely and replace potassium and magnesium as needed. Will anticipate hopefully discharging tomorrow. She remains on a baby aspirin 81 mg for DVT prophylaxis. Will continue to monitor her blood pressure closely. Again anticipate discharging tomorrow once her electrolytes are showing improvement as well as her renal function. Until then will continue to monitor and treat as needed. #[id number] [facility]
[2019-06-30] MEDS ORDERED: LEVOTHYROXINE SODIUM 0.088 MG TAB ONE (03:25)
[2019-06-30] MEDS: KCL 40MEQ/NS 1,000 ML IVS PRN (03:52)
[2019-06-30] MEDS: PANTOPRAZOLE SODIUM TAB 40 MG PO SCH (06:29)
[2019-06-30] MEDS ORDERED: LEVOTHYROXINE SODIUM 0.088 MG TAB PO SCH (06:30)
[2019-06-30] MEDS: NON-FORMULARY MEDICATION 1 EA MIS (Leflunomide [Leflunomide] 10 MG) PO SCH (08:28)
[2019-06-30] MEDS: NON-FORMULARY MEDICATION 1 EA MIS (Mirabegron [Myrbetriq] 25 MG) PO SCH (08:29)
[2019-06-30] MEDS ORDERED: POTASSIUM CHLORIDE 20 MEQ TAB PO ONE (09:12)
[2019-06-30] MEDS ORDERED: SODIUM CHLORIDE 0.9% (FLUSH) 10 ML SYG IV ONE (09:15)
[2019-06-30] MEDS: MEGESTROL ACETATE 40 MG TAB PO SCH (09:25)
[2019-06-30] MEDS: HYDROXYCHLOROQUINE SULFATE 200 MG PO SCH (09:25)
[2019-06-30] MEDS: ASPIRIN (CHEWABLE) 81 MG TAB PO SCH (09:25)
[2019-06-30] MEDS: AMIODARONE HCL 200 MG TAB PO SCH (09:25)
[2019-06-30] MEDS: POTASSIUM CHLORIDE 10 MEQ TAB PO SCH (09:25)
[2019-06-30] MEDS: hydroCHLOROthiazide 12.5 MG CAP PO SCH (09:25)
[2019-06-30] MEDS: CARVEDILOL 3.125 MG TAB PO SCH (09:25)
[2019-06-30] MEDS: SODIUM CHLORIDE 0.9% (FLUSH) 10 ML SYG IV SCH (09:42)
[2019-06-30 10:43] VITALS: BP 189/83; TEMP 98; O2SAT 99
[2019-06-30] MEDS ORDERED: POTASSIUM CHLORIDE 20 MEQ TAB PO SCH (17:00)
[2019-07-02] MEDS ORDERED: predniSONE 10 MG TAB PO SCH (09:00)
--- NOTE | 2019-07-02 09:05 | DS ---
SUPERVISING PHYSICIAN: Pj Longoria MD ADMISSION DIAGNOSIS: 1. Acute on chronic kidney injury with admitting creatinine of 2.91. Her baseline creatinine is 2. 2. Electrolyte imbalance, especially low potassium with level of 2.2 and hyponatremia of 125. 3. Syncopal episodes with no loss of consciousness or traumatic injury. 4. Recent right hip fracture about six weeks ago with Gamma nail repair. 5. 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 She is followed by Dr. Whyte, blue line hanger in [place]. 6. History of atrial fibrillation with currently controlled. She is on amiodarone and Coreg. 7. Hypertensive crisis requiring labetalol. She has a history of hypertension. 8. Hypertension, currently on medications. 9. Hypothyroidism on supplementation. DISCHARGE DIAGNOSIS: 1. Acute on chronic kidney injury with admitting creatinine of 2.91. Her baseline creatinine is 2, improving with fluids. The patient's creatinine returning to baseline levels. 2. Electrolyte imbalance including persistent hypokalemia, but improving with oral replacement, stable. 3. Pre-syncopal episodes with no fall and further occurrence during admission, uncertain etiology, possibly related to some orthostatic hypotension. 4. History of recent right hip fracture repair with Gamma nail within the last 6 weeks, showing no complications. 5. Unknown blood dyscrasia, being followed by Dr. Whyte, blue line hanger in [place], with no signs of bleeding. 6. Chronic atrial fibrillation with a controlled ventricular rate with the patient on amiodarone, Coreg and baby aspirin. 7. Hypertensive crisis, responding to labetalol, with a history of hypertension, controlled prior to discharge. 8. Hypothyroidism on supplementation. REASON FOR HOSPITALIZATION: This is an 88-year-old female patient who resides at [facility]. She had some routine blood work with her home health today and her potassium was at 2.5. Dr. Lubin' office was contacted and his office advised her to come to the Emergency Room. She also had two syncopal episodes yesterday. She did not lose consciousness, she just slumped over into her chair. There was no apparent injury. Her daughter did say that she has had these syncopal episodes in the past when her potassium or sodium were really low. She had a right hip fracture approximately six weeks ago with a Gamma nail repair. She does have some sort of unknown hematologic disorder related to anticoagulant therapy. She is followed by Dr. Whyte in [place]. Today, her initial lab from [facility] showed WBC 5,500 with hemoglobin 10, hematocrit 28.8. Sodium 127, potassium 2.5, chloride 92, BUN 47, creatinine 2.79. Serum osmolality 267.3. Cardiac enzymes were all negative with the exception of her troponin was 0.07. Her vital signs showed a temperature of 99.7, heart rate 70, blood pressure 129/87, respiratory rate 18, O2 saturation 97%. She was given fluids initially. Her blood pressure then sometime later went up to 200/98. She was given some labetalol. Shortly thereafter, it came down to 187/106. After that, it came down to 179/84. Her PT was 10, INR 1, PTT 23.5, D-dimer 1.86. She was experiencing no shortness of breath or respiratory symptoms. Due to her elevated creatinine, a CTA was unable to be performed. Bilateral lower extremity Dopplers were ordered with no evidence of DVT within the venous structures of the bilateral lower extremities. Chest x-ray was also done which showed cardiomegaly observed without evidence of congestive heart failure. She also had a pelvis x-ray which showed evidence of orthopedic surgery in both hips, no recent or new fractures detected. A head CT was also completed which showed no acute intracranial abnormality, no evidence of hemorrhage, mass lesion or large acute infarction. More remote microvascular ischemia changes. Change progressed when correlated with prior study. 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 She was also given some IV potassium supplementation and admitted in stable condition. HOSPITAL COURSE: Ms. Jarrett was admitted for hypertensive urgency and crisis. She was given labetalol with good response. Her er blood pressure on initial presentation was 186/98. At discharge, blood pressure was 183/83, which is her baseline levels. She was also hypokalemic at 2.2 initially and had both parenteral and oral therapy, which did show improvement. She had no syncopal episodes. She had no further complications and it was felt she was clinically stable enough to continue with outpatient management. PLAN: Ms. Jarrett was discharged on 06/30/[address] Lubin on 07/12/19 as scheduled. She has levels health which will followup and recheck a potassium within the next several days. She was to resume her medications as instructed which included increasing her potassium to 20 mEq b.i.d. She was told to return to the hospital should she have any worsening or concerning symptoms. Diet was to resume her usual diet. Activity as per physical therapy, increase as tolerated. MEDICATIONS AT DISCHARGE: 1. Baby aspirin 81 mg daily. 2. Potassium chloride with K-Dur 20 mEq twice daily, #30, no refills, continue after reevaluation through home health and Dr. Lubin. CONDITION AT DISCHARGE: Stable and improved. DISPOSITION: The patient was discharged home. [facility][id number] [facility]
== END 2019-06-30 13:31 | disposition home health service (06) | DRG 683 ==
LOC: ER 14:21 → MS 20:19
PROVIDERS: ADMIT Nurse Practitioner Acute Care; ATTEND Nurse Practitioner Family
DX: N17.9 Acute kidney failure, unspecified (principal); E87.1 Hypo-osmolality and hyponatremia; E87.6 Hypokalemia; I16.0 Hypertensive urgency; E86.0 Dehydration; I95.1 Orthostatic hypotension; D75.9 Disease of blood and blood-forming organs, unspecified; T45.515S Adverse effect of anticoagulants, sequela; I48.91 Unspecified atrial fibrillation; I12.9 Hypertensive chronic kidney disease with stage 1 through stage 4 chronic kidney disease, or unspecified chronic kidney disease; E03.9 Hypothyroidism, unspecified; N18.9 Chronic kidney disease, unspecified; I48.2 Chronic atrial fibrillation; J30.2 Other seasonal allergic rhinitis; M81.0 Age-related osteoporosis without current pathological fracture; I25.10 Atherosclerotic heart disease of native coronary artery without angina pectoris; Z79.82 Long term (current) use of aspirin; Z98.890 Other specified postprocedural states; Z79.52 Long term (current) use of systemic steroids; Z79.899 Other long term (current) drug therapy

== ENCOUNTER → 2019-07-09 | Outpatient (CLI) | payer OTHER | LOC: GRHH 08:48 | PROVIDERS: ATTEND Family Medicine | DX: D50.9 Iron deficiency anemia, unspecified (principal); E03.9 Hypothyroidism, unspecified; E87.1 Hypo-osmolality and hyponatremia ==

== ENCOUNTER → 2019-07-12 | Outpatient (CLI) | payer OTHER ==
--- NOTE | 2019-07-12 09:48 | RAD ---
EXAM DESCRIPTION: Hip,Right 2 Views CLINICAL HISTORY: S72.001D COMPARISON: June 14, 2019 TECHNIQUE: AP/frog leg lateral FINDINGS: Two views right hip demonstrate internal fixation with a short intramedullary adela anchored distally and interlocking compression screw into the inferior femoral head. Appearance and alignment is unchanged from study one one month earlier. Intertrochanteric fracture of the hip is difficult to appreciate on the AP view but cortical step-off and developing callus formation along the medial and posterior aspect of the lesser trochanteric and proximal shaft region is noted. IMPRESSION: Internal fixation and healing intertrochanteric fracture right hip in essentially stable alignment. Electronically signed by: Pj Rubio MD 07/12/2019 9:47 AM CDT
== END ==
LOC: RAD 09:25
PROVIDERS: ATTEND Orthopaedic Surgery
DX: S72.001D Fracture of unspecified part of neck of right femur, subsequent encounter for closed fracture with routine healing (principal)

== ENCOUNTER → 2019-07-16 | Outpatient (CLI) | payer OTHER | LOC: GRHH 12:03 | PROVIDERS: ATTEND Family Medicine | DX: N18.4 Chronic kidney disease, stage 4 (severe) (principal) ==

== ENCOUNTER → 2019-07-31 | Outpatient (CLI) | payer OTHER | LOC: GRHH 10:45 | PROVIDERS: ATTEND Internal Medicine Rheumatology | DX: D50.9 Iron deficiency anemia, unspecified (principal); N18.4 Chronic kidney disease, stage 4 (severe); M06.9 Rheumatoid arthritis, unspecified ==

== ENCOUNTER → 2019-08-16 | Outpatient (CLI) | payer OTHER ==
--- NOTE | 2019-08-17 15:22 | RAD ---
EXAM DESCRIPTION: Hip,Right 2 Views: CR/DR/XR CLINICAL HISTORY: 88 years Female FX COMPARISON: June 2019 TECHNIQUE: Two Views. AP neutral AP ABDuction. FINDINGS: Right femoral intramedullary nail and Zickel Nail in the right femoral neck and right femoral head. Inferior fixation screw. Stable since the prior study. Bony fragments are unchanged. Normal bone density around the hardware. IMPRESSION: Stable ORIF right hip fracture. No bony complications. Electronically signed by: Todd Ortiz MD 08/17/2019 3:21 PM CDT
== END ==
LOC: RAD 14:06
PROVIDERS: ATTEND Orthopaedic Surgery
DX: S72.001D Fracture of unspecified part of neck of right femur, subsequent encounter for closed fracture with routine healing (principal)

== ENCOUNTER → 2019-08-28 | Outpatient (CLI) | payer OTHER | LOC: GRHH 10:14 | PROVIDERS: ATTEND Internal Medicine Rheumatology | DX: N18.4 Chronic kidney disease, stage 4 (severe) (principal); D50.9 Iron deficiency anemia, unspecified; M06.9 Rheumatoid arthritis, unspecified ==

== ENCOUNTER → 2019-10-01 | Outpatient (CLI) | payer OTHER ==
--- NOTE | 2019-10-01 12:33 | RAD ---
EXAM DESCRIPTION: Femur,Right CLINICAL HISTORY: 88 years Female, FRACTURE COMPARISON: Radiographs the right hip dated 08/16/2019. TECHNIQUE: 2 views of the right femur were obtained. FINDINGS: Surgical fixation of the intertrochanteric fracture of the right femur with some interval healing. The hardware appears intact. IMPRESSION: Surgical fixation of the intertrochanteric fracture of the right femur with some interval healing. Electronically signed by: Kiesha Chappell MD 10/01/2019 12:[address] [facility]
== END ==
LOC: RAD 11:14
PROVIDERS: ATTEND Orthopaedic Surgery
DX: S72.001D Fracture of unspecified part of neck of right femur, subsequent encounter for closed fracture with routine healing (principal); Z98.890 Other specified postprocedural states

== ENCOUNTER → 2019-10-02 | Outpatient (CLI) | payer OTHER | LOC: GRHH 11:49 | PROVIDERS: ATTEND Internal Medicine Rheumatology | DX: E87.6 Hypokalemia (principal); I10 Essential (primary) hypertension; N18.4 Chronic kidney disease, stage 4 (severe); M06.9 Rheumatoid arthritis, unspecified ==

== ENCOUNTER → 2019-10-18 | Outpatient (CLI) | payer OTHER | LOC: GRHH 11:35 | PROVIDERS: ATTEND Internal Medicine Rheumatology | DX: D50.9 Iron deficiency anemia, unspecified (principal); I10 Essential (primary) hypertension ==

== ENCOUNTER → 2019-11-05 | Outpatient (CLI) | payer OTHER | LOC: GMAJ 14:20 | PROVIDERS: ATTEND Family Medicine | DX: R79.89 Other specified abnormal findings of blood chemistry (principal); R41.3 Other amnesia ==

== ENCOUNTER → 2020-01-03 | Outpatient (CLI) | payer OTHER ==
--- NOTE | 2020-01-03 16:49 | US ---
PROVIDED CLINICAL HISTORY/REASON FOR EXAM: LOCALIZED EDEMA COMPARISON STUDY: None available. TECHNIQUE: Venous duplex examination using B-mode, color flow and spectral Doppler was performed. FINDINGS: Right lower extremity grayscale and Doppler venous ultrasound demonstrates normal luminal compressibility and color flow without evidence of intraluminal thrombus of the common femoral vein, femoral vein, and popliteal vein.. The visualized calf veins are unremarkable. Subcutaneous edema about the calf. IMPRESSION: No evidence of DVT within venous structures of the right lower extremity. Electronically signed by: Marco Lee MD 01/03/2020 4:47 PM [employer] [facility]
== END ==
LOC: US 16:05
PROVIDERS: ATTEND Family Medicine
DX: R60.0 Localized edema (principal)

== ENCOUNTER 2020-01-04 13:29 | Observation (INO) | payer OTHER ==
--- NOTE | 2020-01-04 13:30 | HP ---
SUPERVISING PHYSICIAN: Pj Longoria MD CHIEF COMPLAINT: Lower extremity edema on the right foot with bruising. HISTORY OF PRESENT ILLNESS: Ms. Jarrett is an 89-year-old female patient who has been seeing Dr. Lubin this past week for right lower extremity swelling, pedal edema. She does have a history of iron-deficiency anemia and followed by Dr. Whyte as well as having chronic atrial fibrillation and heart failure. She noted she started having some edema localized to her right ankle in the last week. A lower Doppler study was done on January 03 prior to admission. There was note per radiology interpretation of a deep venous thrombosis involving the right lower extremity. She also endorsed that she has been having some pain in her right thigh area and some bruising but denies any actual falls. Laboratory studies in the clinic showed her hemoglobin was 8.5 and hematocrit 26.2 with platelet count of 136,000, differential within normal limits. She did have a BNP that was elevated at 902. Creatinine was 2.2 which is stable and at baseline levels. BUN was elevated at 31. She was denying any abdominal pain or any changers in bowel habits, any bloody stools. No significant shortness of breath. Dr. Lubin requested the patient be directly admitted for observation for close monitoring of her hemoglobin and hematocrit and workup for exacerbation of congestive heart failure secondary to continuing worsening anemia. She was placed in observation in stable condition. PAST MEDICAL HISTORY: 1. Atrial fibrillation with pacemaker implementation. 2. Hypertension. 3. Hypothyroidism. 4. Iron-deficiency anemia followed by Dr. Whyte. 5. Osteoporosis. 6. Peptic ulcer disease with an upper GI bleed in 2004. 7. Coronary artery disease. 8. History of subdural hematoma in 2015. 9. Pulmonary nodules. PAST SURGICAL HISTORY: 1. Appendectomy. 2. Benign breast biopsy x3. 3. Cataract removal bilateral. 4. Hysterectomy. 5. Tonsillectomy and adenoidectomy. 6. Gamma nail to fracture of right hip in 2019. 7. Pacemaker implantation in 2017. OUTPATIENT MEDICATIONS: 1. Tylenol #3, one every 8 hours as needed. 2. Levothyroxine 0.088 mg tablet, one daily. 3. Calcium succinate 1 tablet twice a day. 4. Hydroxychloroquine 200 mg twice a day. 5. Carvedilol 12.5 mg 1 tablet b.i.d. 6. Amiodarone 200 mg daily. 7. Myrbretiq 25 mg extended release one daily. 8. Pantoprazole 40 mg enteric coated, 1 tablet twice a day. 9. Clonidine 0.1 mg, 1 every 8 hours as needed for blood pressure greater than a systolic of 180. 10. Zofran 1 tablet every 6 hours as needed for nausea. 11. Megestrol 20 mg tablet, 1 daily. 12. Leflunomide 10 mg tablet daily. 13. Multivitamin 1 tablet daily. 14. Hydrochlorothiazide 12.5 mg tablet 1 daily. 15. Potassium chloride 10 mEq extended release, 4 tablets b.i.d. 16. Mucinex 1200 mg as needed. 17. Banophen 25 mg tablet 1 every 8 hours as needed for allergies. 18. Prednisone 20 mg tablet, one-half tablet (10 mg) every other Tuesday and mornings. ALLERGIES: OFLOXACIN, PROPAFENONE. FAMILY HISTORY: Unremarkable. SOCIAL HISTORY: She is retired. She is , she has 2 children. She lives at [facility]. She has never smoked, doesn't drink or use illicit drugs. REVIEW OF SYSTEMS: CONSTITUTIONAL: Negative for any fevers, chills. does have some general malaise and weakness, no unintentional weight loss. HEENT: Negative for sore throats, earaches, nasal congestion, vision changes. RESPIRATORY: Denies shortness of breath, wheezing, coughing, dyspnea, hemoptysis. CARDIOVASCULAR: Denies chest pain, palpitations or syncopal episodes. GASTROINTESTINAL: Negative for nausea, vomiting, diarrhea, constipation. GENITOURINARY: Negative for dysuria, hematuria, polyuria. EXTREMITIES: As noted in history of present illness. NEUROLOGIC: Denies headache, vision changes, syncopal episodes, ataxia, seizures. HEMATOLOGIC: Positive for easy bruising, denies unexplained bleeding. Denies any transfusion reactions. PHYSICAL EXAMINATION: VITAL SIGNS: Temperature 98.1. Heart rate 74. Blood pressure 165/75. Respiratory rate 16. O2 saturation 98% on room air. GENERAL: The patient is resting comfortably, appears to be in no acute distress. HEENT: Tympanic membranes clear bilateral. Oropharynx is pink, moist without lesions. NECK: Supple, non-tender, no jugular venous distention. CHEST: Lungs are clear to auscultation without rhonchi, rales, or wheezes. CARDIOVASCULAR: Regular rate and rhythm without appreciable murmurs, rubs, or gallops. GASTROINTESTINAL: Abdomen is soft, nondistended, nontender. Bowel sounds are positive. EXTREMITIES: There is old ecchymoses to both lower extremities, greater on the left than the right. There is edema to the right ankle and foot which appears to be more dependent. There are areas of bruising which appear to be old on the right thigh area. No obvious trauma, no deformities. Pulses were 1+ bilaterally. NEUROLOGIC: Alert and oriented times three. Cranial nerves II-XII are grossly intact. Facial features were symmetrical. Extraocular movements within normal limits. No noted nystagmus. She was alert and oriented x 3. SKIN: Warm, pale, dry. LABORATORY: CBC in the clinic showed white count of 9,300, hemoglobin 8.5, hematocrit 26.2, platelet count 136,000. Differential showed to be without a left shift. BNP was elevated at 902. BMP showed glucose of 80, BUN 31, creatinine 2.2, potassium and sodium normal. Calcium normal at 8.0. Additional labs on admission: coagulation studies showed normal PT/PTT. Chemistries including liver showed normal function, ALT and AST were both within normal limits. Urinalysis on cath specimen showed 100 protein with trace of intact blood. Microscopic revealed 3+ bacteria but no epithelials, no white cells, no RBCs. MICROBIOLOGY: Urine culture is pending. RADIOLOGY: Hip x-ray of right hip and right femur were without any acute findings per radiology interpretation. 2-view chest x-ray per radiology interpretation showed stable enlarged cardiac silhouette, partially calcified aorta with hyperinflated lungs, no lobar consolidations or pleural effusions or pneumothorax. Echocardiogram was pending. IMPRESSION: 1. Acute decompensated heart failure likely due to underlying anemia. 2. Right lower extremity edema without evidence of deep venous thrombosis on ultrasound, etiology uncertain. 3. Bruising with ecchymoses of bilateral lower extremities without any signs of trauma, etiology uncertain. 4. Atrial fibrillation on amiodarone and carvedilol showing a paced rhythm. 5. Acute kidney failure with elevated creatinine, appears to be baseline levels but probably some exacerbation underlying anemia with elevated BUN due to prerenal azotemia. 6. Acute urinary tract infection with bacteruria as noted on cath specimen, patient being asymptomatic. 7. Anemia exacerbating #1 requiring transfusion of one unit of packed RBCs with no current evidence of acute loss requiring close monitoring with the patient having a history of unknown bleeding disorder previously related to anticoagulant therapy followed by Dr. Whyte. 8. Hypertension, stable. 9 Hypothyroidism on supplementation. 10. Osteoporosis. 11. Peptic ulcer disease. 12. Coronary artery disease. 13. History of brain meningioma. 14. Pulmonary nodule. 15. Subdural coma after fall in May 2016. 16. Chronic iron-deficiency anemia followed by Dr. Whyte. PLAN: Ms. Jarrett is going to be placed in observation tonight for close monitoring for hemoglobin and hematocrit as well as treatment of acute exacerbation of congestive heart failure. She will be given one unit of packed RBCs followed by 40 of Lasix IV. We will go ahead and place a Pagan for close monitoring of I&Os. Anticipate this removal to less than 48 hours for close monitoring of strict I&Os. Will hold off on DVT prophylaxis with Lovenox at this point given the patient's easy bruising and hemoglobin and hematocrit at this point to make sure she is not having any acute loss. Will monitor stools for bleeding. Will recheck hemoglobin and hematocrit in the morning. Will go ahead and start her on some antibiotics to include Rocephin given possible urinary tract infection with cultures pending. Anticipate her length of stay to be 1 to 2 days. Until we can transition her to outpatient management, we will continue to monitor and treat as needed. #[id number] [facility]
[2020-01-04] MEDS ORDERED: SODIUM CHLORIDE 0.9% (FLUSH) 10 ML SYG IV PRN (13:56)
[2020-01-04] MEDS ORDERED: NITROGLYCERIN 0.4 MG 25 EA TAB SL PRN (13:56)
[2020-01-04] MEDS ORDERED: ONDANSETRON INJ 4 MG/2 ML VIAL IV PRN (13:56)
[2020-01-04] MEDS ORDERED: ACETAMINOPHEN SUPPOSITORY 650 MG PR PRN (13:56)
[2020-01-04] MEDS ORDERED: IV SET AND CAP CHANGE INJ INJ SCH (14:00)
[2020-01-04] MEDS ORDERED: FUROSEMIDE INJ 40 MG/4 ML VIAL IV ONE (14:00)
--- NOTE | 2020-01-04 15:33 | RAD ---
EXAM DESCRIPTION: Chest,2 Views CLINICAL HISTORY: 89 years Female, CHF COMPARISON: 06/28/2019 TECHNIQUE: 2 view radiograph of the chest. IMPRESSION: Stable enlarged cardiac silhouette. Partially calcified aorta. Stable cardiac device in the left chest wall. Hyperinflated lungs. No lobar consolidation. No pleural effusion or pneumothorax. Thoracic spondylosis. Electronically signed by: Elder Woods MD 01/04/2020 3:31 PM SURGERY MANAGER
[2020-01-04] MEDS ORDERED: HYDROcodone 5MG/APAP 325MG 1 EA TAB PO PRN (16:20)
[2020-01-04] MEDS ORDERED: diphenhydrAMINE HCL 50 MG/ML VIAL IV ONE (16:51)
[2020-01-04] MEDS ORDERED: SODIUM CHLORIDE 0.9% 500ML 500 ML IVS SCH (17:00)
--- NOTE | 2020-01-04 17:36 | RAD ---
EXAM DESCRIPTION: XR Femur Right (accession [id number]), XR Hip Right 2 Views (accession [id number]) CLINICAL HISTORY: 89 years Female pain in right hip and thigh TECHNIQUE: Two views of the right hip and two views of the right femur are provided. COMPARISON: 10/01/2019 FINDINGS: Patient again seen to be status post prior open reduction internal fixation of a partially healed intertrochanteric fracture of the right femoral neck utilizing a gamma nail system. There is no acute right hip or femoral femoral fracture or dislocation. 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 The right knee again demonstrates chondrocalcinosis with mild tricompartmental osteoarthritis. No aggressive osseous lesion. IMPRESSION: Stable postsurgical changes of the right proximal femur without acute fracture or dislocation. Stable arthrosis at the right hip and right knee. Electronically signed by: Olimpia Butler MD 01/04/2020 5:34 PM [facility]
--- NOTE | 2020-01-04 17:36 | RAD ---
EXAM DESCRIPTION: XR Femur Right (accession [id number]), XR Hip Right 2 Views (accession [id number]) CLINICAL HISTORY: 89 years Female pain in right hip and thigh TECHNIQUE: Two views of the right hip and two views of the right femur are provided. COMPARISON: 10/01/2019 FINDINGS: Patient again seen to be status post prior open reduction internal fixation of a partially healed intertrochanteric fracture of the right femoral neck utilizing a gamma nail system. There is no acute right hip or femoral femoral fracture or dislocation. 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 The right knee again demonstrates chondrocalcinosis with mild tricompartmental osteoarthritis. No aggressive osseous lesion. IMPRESSION: Stable postsurgical changes of the right proximal femur without acute fracture or dislocation. Stable arthrosis at the right hip and right knee. Electronically signed by: Olimpia Butler MD 01/04/2020 5:34 PM [facility]
[2020-01-04] MEDS: ACETAMINOPHEN 325 MG TAB PO ONE (17:55)
[2020-01-04] MEDS ORDERED: SODIUM CHL 0.9% 50ML MIN-BAG+ 50 ML IVPB ONE (20:13)
[2020-01-04] MEDS ORDERED: cefTRIAXone SODIUM 1 GM VIAL ONE (20:13)
[2020-01-04] MEDS: cefTRIAXone SODIUM 1 GM in SODIUM CHL 0.9% 50ML MIN-BAG+ 50 ML IVPB SCH (20:14)
[2020-01-04] MEDS ORDERED: CARVEDILOL 12.5 MG TAB ONE (20:59)
[2020-01-04] MEDS ORDERED: PANTOPRAZOLE SODIUM TAB 40 MG PO SCH (21:00)
[2020-01-04] MEDS ORDERED: MEGESTROL ACETATE 40 MG TAB ONE (21:00)
[2020-01-04] MEDS ORDERED: NON-FORMULARY MEDICATION 1 EA MIS (Carvedilol [Carvedilol] 6.25 MG) PO SCH (21:00)
[2020-01-04] MEDS ORDERED: MEGESTROL ACETATE 20 MG PO SCH (21:00)
[2020-01-04] MEDS: NON-FORMULARY MEDICATION 1 EA MIS (Hydroxychloroquine Sulfate [Plaquenil] 200 MG) PO SCH (22:32)
[2020-01-05] MEDS ORDERED: diphenhydrAMINE HCL 50 MG/ML VIAL IV ONE (01:00)
[2020-01-05] MEDS: ACETAMINOPHEN 325 MG TAB PO ONE (01:01)
[2020-01-05] MEDS: CARVEDILOL 3.125 MG TAB PO SCH ×2 (09:33→20:58)
[2020-01-05] MEDS: PANTOPRAZOLE SODIUM TAB 40 MG PO SCH ×2 (09:33→17:47)
[2020-01-05] MEDS: LEVOTHYROXINE SODIUM 0.088 MG TAB PO SCH (09:33)
[2020-01-05] MEDS: predniSONE 10 MG TAB PO SCH (09:34)
[2020-01-05] MEDS: MEGESTROL ACETATE 40 MG TAB PO SCH ×2 (09:34→20:59)
[2020-01-05] MEDS: AMIODARONE HCL 200 MG TAB PO SCH (09:34)
[2020-01-05] MEDS: FUROSEMIDE INJ 40 MG/4 ML VIAL IV SCH ×2 (09:35→17:47)
[2020-01-05] MEDS: NON-FORMULARY MEDICATION 1 EA MIS (Hydroxychloroquine Sulfate [Plaquenil] 200 MG) PO SCH ×2 (16:30→21:00)
[2020-01-05] MEDS: NON-FORMULARY MEDICATION 1 EA MIS (Leflunomide [Leflunomide] 10 MG) PO SCH (16:30)
[2020-01-05] MEDS: NON-FORMULARY MEDICATION 1 EA MIS (Mirabegron [Myrbetriq] 25 MG) PO SCH (16:31)
[2020-01-05] MEDS ORDERED: PANTOPRAZOLE SODIUM IV 40 MG VIAL ONE (17:40)
[2020-01-05] MEDS ORDERED: SODIUM CHL 0.9% 50ML MIN-BAG+ 50 ML IVPB ONE (18:56)
[2020-01-05] MEDS ORDERED: cefTRIAXone SODIUM 1 GM VIAL ONE (18:57)
[2020-01-05] MEDS: cefTRIAXone SODIUM 1 GM in SODIUM CHL 0.9% 50ML MIN-BAG+ 50 ML IVPB SCH (20:03)
[2020-01-06] MEDS ORDERED: POTASSIUM CHLORIDE ELIXIR 20 MEQ/15 ML UD PO ONE (06:15)
[2020-01-06] MEDS: LEVOTHYROXINE SODIUM 0.088 MG TAB PO SCH (06:22)
[2020-01-06] MEDS: PANTOPRAZOLE SODIUM TAB 40 MG PO SCH (06:33)
[2020-01-06] MEDS: AMIODARONE HCL 200 MG TAB PO SCH (08:48)
[2020-01-06] MEDS: CARVEDILOL 3.125 MG TAB PO SCH (08:48)
[2020-01-06] MEDS: NON-FORMULARY MEDICATION 1 EA MIS (Mirabegron [Myrbetriq] 25 MG) PO SCH (08:49)
[2020-01-06] MEDS: NON-FORMULARY MEDICATION 1 EA MIS (Leflunomide [Leflunomide] 10 MG) PO SCH (08:49)
[2020-01-06] MEDS: predniSONE 10 MG TAB PO SCH (08:49)
[2020-01-06] MEDS: MEGESTROL ACETATE 40 MG TAB PO SCH (08:49)
[2020-01-06] MEDS: NON-FORMULARY MEDICATION 1 EA MIS (Hydroxychloroquine Sulfate [Plaquenil] 200 MG) PO SCH (08:50)
[2020-01-06] MEDS ORDERED: SODIUM CHLORIDE 0.9% (FLUSH) 10 ML SYG IV SCH (09:00)
--- NOTE | 2020-01-06 09:33 | PN ---
SUPERVISING PHYSICIAN: Pj Longoria MD DATE: 01/05/20 SUBJECTIVE: The patient did well last night with one unit of packed red blood cells and no complications. He notes he she feels a little bit better today, feels like the leg is not quite as swollen on the right. OBJECTIVE: VITAL SIGNS: Temperature 97.8, pulse 70, blood pressure 163/75, respirations 18, oxygen saturation 90% on room air. I&O: Negative balance of 1262, weight 54.7 kg. He has had one bowel movement. GENERAL: The patient is resting comfortably and appears to be in no acute distress. She is alert. CHEST: Clear to auscultation bilaterally, just slightly diminished towards the bases. HEART: Regular rate and rhythm. ABDOMEN: Soft, non-tender, positive bowel sounds. EXTREMITIES: Continued ecchymotic areas on both lower extremities, greater on the left than the right. There is still a little edema to the right ankle but not as much on admission and is more of 1+ compared to admission of 2+. There are still some areas of bruising on the right upper thigh that is obviously old but no obvious trauma. Pulse 1+ bilaterally. NEUROLOGIC: She is alert and oriented x 3. LABORATORY: Post transfusion, hemoglobin 8.3, hematocrit 24.5. BMP showed a BUN of 39, creatinine 2.37. Liver functions within normal limits. Lactic acid normal. Urine culture pending. RADIOLOGY: No additional studies today. IMPRESSION: 1. Acute decompensated heart failure likely due to underlying anemia, showing to be stable, slightly improved with one unit of packed red blood cells. 2. Right lower extremity edema without evidence of deep venous thrombosis on ultrasound, etiology uncertain, showing improvement with Lasix. 3. Bruising with ecchymoses of bilateral lower extremities without any signs of trauma, etiology uncertain. 4. Atrial fibrillation on amiodarone and carvedilol showing a paced rhythm. 5. Acute kidney failure with elevated creatinine, appears to be baseline levels but probably some exacerbation underlying anemia with elevated BUN due to prerenal azotemia, close to baseline but a little elevated from yesterday, likely more prerenal azotemia with patient repeating Lasix. 6. Acute urinary tract infection with bacteruria as noted on cath specimen, patient being asymptomatic with culture pending. 7. Anemia with history of iron-deficiency anemia requiring one unit of packed RBCs with no obvious acute loss requiring close monitoring as the patient is followed by Dr. Whyte from a previous related anticoagulation therapy episode. 8. Hypertension, stable. 9 Hypothyroidism on supplementation. 10. Osteoporosis. 11. Peptic ulcer disease. 12. Coronary artery disease. 13. History of brain meningioma. 14. Pulmonary nodule. 15. Subdural coma after fall in May 2016. 16. Chronic iron-deficiency anemia followed by Dr. Whyte. PLAN: We will go ahead and continue with some parenteral diuresis today and monitor hemoglobin and hematocrit. Will get an H&H at 1600 and again in the morning, should it show a significant decrease will certainly transfuse a second unit of RBCs. She is on a beta saroj for CHF but not ISACC or ARB due to contraindications related to elevated creatinine levels. Will continue to hold Lovenox at this point until we can insure that she is not having any actual bleeding. She remains on antibiotics for the urinary tract infection with Rocephin. Will await the culture results. Hopefully, we can transition her to outpatient management tomorrow if she is showing to be stable, will have to wait until her hemoglobin and hematocrit is back and see that she does not require additional packed red blood cells. Until then, we will continue to monitor and treat as needed. #[id number] [facility]
[2020-01-06 10:08] VITALS: O2SAT 99
[2020-01-06 14:54] VITALS: BP 158/80; TEMP 97.6
--- NOTE | 2020-01-10 15:38 | DS ---
SUPERVISING PHYSICIAN: Pj Longoria MD ADMISSION DIAGNOSES: 1. Acute decompensated heart failure likely due to underlying anemia. 2. Right lower extremity edema without evidence of deep venous thrombosis on ultrasound, etiology uncertain. 3. Bruising with ecchymoses of bilateral lower extremities without any signs of trauma, etiology uncertain. 4. Atrial fibrillation on amiodarone and carvedilol showing a paced rhythm. 5. Acute kidney failure with elevated creatinine, appears to be baseline levels but probably some exacerbation underlying anemia with elevated BUN due to prerenal azotemia. 6. Acute urinary tract infection with bacteruria as noted on cath specimen, patient being asymptomatic. 7. Anemia exacerbating #1 requiring transfusion of one unit of packed RBCs with no current evidence of acute loss requiring close monitoring with the patient having a history of unknown bleeding disorder previously related to anticoagulant therapy followed by Dr. Whyte. 8. Hypertension, stable. 9 Hypothyroidism on supplementation. 10. Osteoporosis. 11. Peptic ulcer disease. 12. Coronary artery disease. 13. History of brain meningioma. 14. Pulmonary nodule. 15. Subdural coma after fall in May 2016. 16. Chronic iron-deficiency anemia followed by Dr. Whyte. DISCHARGE DIAGNOSES: 1. Acute decompensated heart failure secondary to exacerbated underlying anemia with echocardiogram on admission showing estimated ejection fraction 45 to 50%. Patient showing to be stable after transfusion. 2. Right lower extremity edema without evidence of deep venous thrombosis on ultrasound, etiology uncertain, showing improvement with Lasix. 3. Bruising with ecchymoses of bilateral lower extremities without any signs of trauma, etiology uncertain. 4. Atrial fibrillation on amiodarone and carvedilol showing a paced rhythm. 5. Acute kidney failure with elevated creatinine, appears to be baseline levels but probably some exacerbation underlying anemia with elevated BUN due to prerenal azotemia, close to baseline but a little elevated from yesterday, likely more prerenal azotemia with patient repeating Lasix. 6. Acute urinary tract infection with bacteruria as noted on cath specimen, patient being asymptomatic with culture pending. 7. Anemia with history of iron-deficiency anemia requiring one unit of packed RBCs with no obvious acute loss requiring close monitoring as the patient is followed by Dr. Whyte from a previous related anticoagulation therapy episode. 8. Hypertension, stable. 9 Hypothyroidism on supplementation. 10. Osteoporosis. 11. Peptic ulcer disease. 12. Coronary artery disease. 13. History of brain meningioma. 14. Pulmonary nodule. 15. Subdural coma after fall in May 2016. 16. Chronic iron-deficiency anemia followed by Dr. Whyte. REASON FOR HOSPITALIZATION: Ms. Jarrett is an 89-year-old female patient who has been seeing Dr. Lubin this past week for right lower extremity swelling, pedal edema. She does have a history of iron-deficiency anemia and followed by Dr. Whyte as well as having chronic atrial fibrillation and heart failure. She noted she started having some edema localized to her right ankle in the last week. A lower Doppler study was done on January 03 prior to admission. There was note per radiology interpretation of a deep venous thrombosis involving the right lower extremity. She also endorsed that she has been having some pain in her right thigh area and some bruising but denies any actual falls. Laboratory studies in the clinic showed her hemoglobin was 8.5 and hematocrit 26.2 with platelet count of 136,000, differential within normal limits. She did have a BNP that was elevated at 902. Creatinine was 2.2 which is stable and at baseline levels. BUN was elevated at 31. She was denying any abdominal pain or any changers in bowel habits, any bloody stools. No significant shortness of breath. Dr. Lubin requested the patient be directly admitted for observation for close monitoring of her hemoglobin and hematocrit and workup for exacerbation of congestive heart failure secondary to continuing worsening anemia. She was placed in observation in stable condition. LABORATORY STUDIES: Hemoglobin on admission was 8.3, hematocrit 24.3. At discharge, hemoglobin 8.4 [place] HCT 24.8. White count was 8,600, differential did show a left shift. Chemistries on discharge showed a sodium 138, potassium 2.5, she was given a potassium supplement prior to discharge. BUN of 39 up to 42, creatinine had gone up to 2.51 from admission 2.37 but she had been diuresed fairly aggressively after transfusion. Liver functions were all within normal limits. Her urinalysis showed trace of leukoesterase with 100 of protein. Microscopic revealed 3+ bacteria. Otherwise, within normal limits. MICROBIOLOGY: Catheterized urine specimen, final culture results showed E. coli that was pansensitive, just resistant to tetracycline and Bactrim with the patient having been on Rocephin during admission and discharged on Cefepime. RADIOLOGY: She had multiple x-rays of her right hip, femur, which were all without any acute findings. Chest x-ray on admission showed stable enlarged cardiac silhouette, partially calcified aorta with a stable cardiac device in the left chest. There is hyperinflated lungs, no consolidation, no pleural effusions. Echocardiogram showed a loaded normal left systolic function, estimated ejection fraction of 45 to 50%, mild left atrial enlargement to mild tricuspid trace and mitral aortic valve and regurgitation with normal pericardium. EKG on admission showed a paced rhythm 100% atrially paced. HOSPITAL COURSE: Ms. Gao was admitted on 01/04 directly from the clinic. She was transfused one unit of blood due to exacerbation of her congestive heart failure and she had no complications from the transfusion showing post transfusion to be stable in regards to her hemoglobin and hematocrit. Her legs did show good response to Lasix and were decreased significantly from admission on edema. She was showing to be clinically stable as well as she was started on antibiotic coverage for underlying urinary tract infection. It was felt that she was clinically stable and improved well enough to continue with outpatient management plan. DISCHARGE ASSESSMENT: Vital signs: Temperature 97.6, pulse 70, blood pressure 158/80, respirations 16, oxygen saturation 99% on room air. GENERAL: Patient was resting comfortably and appeared to be in no acute distress. CHEST: Clear to auscultation. HEART: Regular rate and rhythm. ABDOMEN: Soft, non-tender, positive bowel sounds. EXTREMITIES: Both upper and lower extremities showed all areas of ecchymoses with just a trace of edema to the lower extremities bilaterally with 1+ pulses. NEUROLOGIC: She is alert and oriented x 3. PLAN: Ms. Jarrett was to followup with Dr. Lubin in 7 days or less scheduled. She is to return back to [facility] and follow previous medication instructions as directed. She was instructed to return to the Emergency Department if she had any concerning symptoms. DISCHARGE DIET: Usual diet as tolerated. ACTIVITIES: Resume usual activities as tolerated. MEDICATIONS ON DISCHARGE: Antibiotic coverage for urinary tract infection with Ceftin 259 mg every 12 hours #10, no refills. All other medications prior to discharge are continued. DISPOSITION: The patient is discharged back to [facility]. CONDITION ON DISCHARGE: Stable and improved. [facility][id number] [facility]
== END 2020-01-06 15:32 ==
LOC: MS 13:29 → INTOOBSV 13:29
PROVIDERS: ADMIT Family Medicine; ATTEND Nurse Practitioner Family
DX: I11.0 Hypertensive heart disease with heart failure (principal); I50.9 Heart failure, unspecified; R60.0 Localized edema; M79.651 Pain in right thigh; R23.3 Spontaneous ecchymoses; I48.20 Chronic atrial fibrillation, unspecified; N17.9 Acute kidney failure, unspecified; N39.0 Urinary tract infection, site not specified; B96.89 Other specified bacterial agents as the cause of diseases classified elsewhere; D50.9 Iron deficiency anemia, unspecified; E03.9 Hypothyroidism, unspecified; M81.0 Age-related osteoporosis without current pathological fracture; I25.10 Atherosclerotic heart disease of native coronary artery without angina pectoris; R91.1 Solitary pulmonary nodule; M16.11 Unilateral primary osteoarthritis, right hip; M17.11 Unilateral primary osteoarthritis, right knee; M11.261 Other chondrocalcinosis, right knee; M47.814 Spondylosis without myelopathy or radiculopathy, thoracic region; Z79.1 Long term (current) use of non-steroidal anti-inflammatories (NSAID); Z79.52 Long term (current) use of systemic steroids; Z79.890 Hormone replacement therapy; Z79.899 Other long term (current) drug therapy; Z88.3 Allergy status to other anti-infective agents; Z88.8 Allergy status to other drugs, medicaments and biological substances; Z87.11 Personal history of peptic ulcer disease; Z95.0 Presence of cardiac pacemaker; Z90.49 Acquired absence of other specified parts of digestive tract; Z90.710 Acquired absence of both cervix and uterus

== ENCOUNTER → 2020-01-07 | Outpatient (CLI) | payer OTHER ==
--- NOTE | 2020-01-07 15:24 | US ---
EXAM DESCRIPTION: Venous,Lower Extremity RT: ULTRASOUND. CLINICAL HISTORY: LOCALIZED EDEMA. Right lower extremity. COMPARISON: None Available. TECHNIQUE: Veliz-scale and doppler sonographic evaluation of the deep venous system of the right lower extremity. FINDINGS: Doppler evaluation shows normal color flow and normal phasicity and augmentation of the right common femoral vein, femoral vein, popliteal vein, greater saphenous vein, junction with the CFV. Also normal color flow and normal phasicity and augmentation of the peroneal, and posterior tibial vein. The right lower extremity deep veins were completely compressible; normal occlusion with transducer pressure. Veliz-scale survey showed no echogenic thrombus within these veins. IMPRESSION: 1. Duplex ultrasound evaluation of the right lower extremity deep venous system showing no evidence of thrombosis. Electronically signed by: Todd Ortiz MD 01/07/2020 3:22 PM [facility]
== END ==
LOC: US 11:13
PROVIDERS: ATTEND Family Medicine
DX: R60.0 Localized edema (principal)

== ENCOUNTER → 2020-01-08 | Outpatient (CLI) | payer OTHER | LOC: GMAJ 16:45 | PROVIDERS: ATTEND Family Medicine | DX: D64.9 Anemia, unspecified (principal); I50.811 Acute right heart failure ==

== ENCOUNTER 2020-01-13 10:39 | Emergency (ER) | payer OTHER ==
[2020-01-13 10:59] VITALS: TEMP 97.9
[2020-01-13] MEDS ORDERED: SODIUM CHLORIDE 0.9% (FLUSH) 10 ML SYG IV PRN (11:37)
--- NOTE | 2020-01-13 12:17 | RAD ---
EXAM: XR Chest, 1 View CLINICAL HISTORY: sob TECHNIQUE: Frontal view of the chest. COMPARISON: 01/04/2020. FINDINGS: Limitations: Portions of each apex obscured by the patient's neck. Lungs: Stable interstitial thickening, hyperinflation and areas of linear scarring and/or atelectasis. Pleural space: Unremarkable. No pneumothorax. Heart: Stable cardiac enlargement. Mediastinum: Unremarkable. Bones/joints: Degenerative changes present in the spine and shoulders. Tubes, lines and devices: Stable cardiac pacing device. IMPRESSION: Stable abnormalities as above. Electronically signed by: Guillermina Sanchez MD 01/13/2020 12:15 PM [facility]
--- NOTE | 2020-01-13 15:17 | ED.PDOC ---
History of Present Illness - General Chief Complaint: General Stated Complaint: R lower leg discomfort Time Seen by Provider: 01/13/20 11:36 - History of Present Illness Initial Comments: Pt recently admitted in the hospital with R leg swelling , pain and bruises , she was discharge 1 week after comprehensive work up which was negative , pt again startd sweelling in the limbs 2/2 bleeding inside , having pain , no chest pain or sob.Case d/w hospitalist Tino , he said that he will talk to the PCP Dr Lubin will get back to me , he came to the ER and d/w pt his plan , that she needs to be admitted to r/o PE as her kidney function is not good so she needs VQ scan . I met Tino in the middle of the conversation where he was telling the pt family that she needs to be admitted . Improving Factors: nothing Worsening Factors: nothing Associated Symptoms: denies symptoms Allergies/Adverse Reactions: Allergies Ofloxacin [From Floxin] Allergy (Verified 01/04/20 14:50) Propafenone Allergy (Verified 01/04/20 14:50) Home Medications: Ambulatory Orders Carvedilol 6.25 mg PO BID 04/15/14 Flaxseed (Linseed) [Flax Seed Oil] 1,000 mg PO DAILY 04/15/14 Levothyroxine Sodium [Synthroid] 0.088 mg PO DAILY 04/15/14 Multiple Vitamins W/ Minerals [Multi Complete] 1 ea PO DAILY 04/15/14 Amiodarone HCl 200 mg PO DAILY 05/20/17 Hydroxychloroquine Sulfate [Plaquenil] 200 mg PO BID 05/13/19 Leflunomide 10 mg PO DAILY 05/13/19 Megestrol Acetate 20 mg PO BID 05/13/19 Mirabegron [Myrbetriq] 25 mg PO DAILY 05/13/19 Ondansetron HCl [Zofran] 4 mg PO PRN PRN 05/13/19 Pantoprazole Tablet [Protonix] 40 mg PO BID 05/13/19 predniSONE 15 mg PO DAILY 05/13/19 Acetaminophen [Tylenol] 1,000 mg PO Q6H PRN 06/28/19 Calcium Citrate [Calcitrate] 600 mg PO DAILY 06/28/19 Clonidine HCl 0.1 mg PO DAILY PRN 06/28/19 Hydrochlorothiazide 12.5 mg PO DAILY 06/28/19 Aspirin [Baby Aspirin] 81 mg PO DAILY chwtab 06/30/19 Potassium Chloride Tab [K-Dur] 10 meq PO BIDFD 01/04/20 Cefuroxime Axetil 250 mg PO Q12H #10 tablet 01/06/20 Review of Systems - Review of Systems Constitutional: States: no symptoms reported EENTM: States: no symptoms reported Respiratory: States: no symptoms reported Cardiology: States: no symptoms reported Gastrointestinal/Abdominal: States: no symptoms reported Genitourinary: States: no symptoms reported Musculoskeletal: States: no symptoms reported Skin: States: no symptoms reported Neurological: States: no symptoms reported Endocrine: States: no symptoms reported Hematologic/Lymphatic: States: no symptoms reported Past Medical History (General) - Patient Medical History Hx Seizures: No Hx Stroke: No Hx Dementia: No Hx Asthma: No Hx of COPD: No Hx Cardiac Disorders: Yes - A fib Hx Congestive Heart Failure: Yes Hx Pacemaker: Yes Hx Hypertension: Yes Hx Thyroid Disease: Yes Hx Diabetes: No Hx Gastroesophageal Reflux: Yes - Hx PUD Hx Renal Disease: No Hx Cancer: No Hx of HIV: No Hx Hepatitis C: No Hx MRSA: No Surgical History: appendectomy, cholecystectomy, tonsillectomy, Hysterectomy, other - Vaccination History Hx Tetanus, Diphtheria Vaccination: Yes Hx Influenza Vaccination: Yes - 2019 Hx Pneumococcal Vaccination: Yes - Social History Hx Tobacco Use: No Hx Chewing Tobacco Use: No Hx Alcohol Use: No Hx Substance Use: No Hx Substance Use Treatment: No Hx Depression: No Hx Physical Abuse: No Hx Emotional Abuse: No Hx Suspected Abuse: No Family Medical History - Family History Mother Family History: No Known Living Status: Age at (years of age): 98 Cause of : pneumonia Hx Family Hypertension: Yes Father Family History: No Known Living Status: Age at (years of age): 64 Cause of : surgical complications Sister Family History: Unknown Living Status: Cause of : Lung Cancer Physical Exam - Physical Exam General Appearance: Alert, Comfortable Eye Exam: bilateral normal Ears, Nose, Throat: hearing grossly normal, normal ENT inspection, normal pharynx Neck: non-tender, full range of motion, supple, normal inspection Respiratory: lungs clear, normal breath sounds, no respiratory distress, no accessory muscle use Cardiovascular/Chest: regular rate, rhythm, no gallop, no JVD Gastrointestinal/Abdominal: non tender, soft Back Exam: normal inspection, no CVA tenderness, no vertebral tenderness Extremity: non-tender, normal inspection, other - RLE swollen and tender Neurologic: no motor/sensory deficits, alert, normal mood/affect, oriented x 3 Skin Exam: normal color, warm/dry Progress - Progress Progress: 01/13/20 15:17 Case d/w Tino Hospitalist and agreed to admit the pt 01/13/20 23:06 Pt was not transferred to the floor 01/15/20 21:45 01/15/20 21:46 Addendum : .Case d/w hospitalist Tino , he said that he will talk to the PCP Dr Lubin will get back to me , he came to the ER and d/w pt his plan , that she needs to be admitted to r/o PE as her kidney function is not good so she needs VQ scan . I met Tino in the middle of the conversation where he was telling the pt family that she needs to be admitted. My understanding was pt will be admitted to the floor . Mr Jiménez did not even communicate directly about the plan .After sometime Tino clear to the nurse that the pt will not be admitted in the hospital , he will be transferred to another hospital as we donot have VQ scan. I talked to the pt family they were upset for the delay , I apologize for the delay with the family as there was some miscommunication and mis understanding , we do not have VQ scan . Talked to the hospitalist at [facility] he agreed to admit the pt o the pt was transferred in stable condition 01/15/20 21:52 During the visit saw the pt multiple time answer all the concern of the pt , reviewed X-ray with the pt. Departure - Departure Clinical Impression: Swelling of right lower extremity, Elevated d-dimer, Elevated troponin, CKD (chronic kidney disease) Disposition: Transfer to Hospital Condition: Good Departure Forms: ED Discharge - Pt. Copy, Patient Portal Self Enrollment Referrals: Francisco Lubin MD [Primary Care Provider] - 1-2 Weeks Home Medications: Ambulatory Orders Carvedilol 6.25 mg PO BID 04/15/14 Flaxseed (Linseed) [Flax Seed Oil] 1,000 mg PO DAILY 04/15/14 Levothyroxine Sodium [Synthroid] 0.088 mg PO DAILY 04/15/14 Multiple Vitamins W/ Minerals [Multi Complete] 1 ea PO DAILY 04/15/14 Amiodarone HCl 200 mg PO DAILY 05/20/17 Hydroxychloroquine Sulfate [Plaquenil] 200 mg PO BID 05/13/19 Leflunomide 10 mg PO DAILY 05/13/19 Megestrol Acetate 20 mg PO BID 05/13/19 Mirabegron [Myrbetriq] 25 mg PO DAILY 05/13/19 Ondansetron HCl [Zofran] 4 mg PO PRN PRN 05/13/19 Pantoprazole Tablet [Protonix] 40 mg PO BID 05/13/19 predniSONE 15 mg PO DAILY 05/13/19 Acetaminophen [Tylenol] 1,000 mg PO Q6H PRN 06/28/19 Calcium Citrate [Calcitrate] 600 mg PO DAILY 06/28/19 Clonidine HCl 0.1 mg PO DAILY PRN 06/28/19 Hydrochlorothiazide 12.5 mg PO DAILY 06/28/19 Aspirin [Baby Aspirin] 81 mg PO DAILY chwtab 06/30/19 Potassium Chloride Tab [K-Dur] 10 meq PO BIDFD 01/04/20 Cefuroxime Axetil 250 mg PO Q12H #10 tablet 01/06/20
--- NOTE | 2020-01-13 18:01 | CONS ---
SUPERVISING PHYSICIAN: Kieran Davis MD REASON FOR CONSULTATION: Elevated D-dimer, possibly admission. HISTORY OF PRESENT ILLNESS: : Ms. Jarrett is an 89-year-old female patient who presented to the Emergency Department today with pain in her right thigh area with some bruising and swelling to her right lower extremity. I was asked to see the patient in the Emergency Room for possibility of possibly of admitting to the hospital or transferring with concerns for possible DVT or other complications factors. The patient endorses that she has been feeling fairly well since discharge from her last hospitalization earlier in the month for similar symptoms. She noted that her right leg actually did not start swelling until yesterday and became sore and significantly painful. She did have an elevated BNP on last admission and was transfused one unit of packed red blood cells due to treat her congestive heart failure exacerbation. DVT studies were completed of her right leg with no significant findings. She was discharged home to followup with Dr. Lubin. She also had a urinary tract infection at this time and was treated with Ceftin. Today in the Emergency Room, her lab showed she had a white count of 10,800, hemoglobin 8.2, hematocrit 24.6 which is showing to be stable from last admission and discharge. Platelet count 109,000, differential showing a left shift, coagulation studies showed an elevated D-dimer of 3290 with a PT of 10.2 and PTT of 18.6. Chemistries showed normal electrolytes, BUN 32.9, creatinine 2.31 which appears to be her baseline status. Liver functions were slightly elevated with initial bilirubin of 1.2. She did have an elevated BNP of 810 and troponin were bumped at 0.09. I did discuss the case with Dr. Davis, supervising physician, and her primary care physician, Dr. Lubin. The concern is that with elevated D-dimer, that pulmonary embolism was a significant risk and given her`elevated creatinine we are unable to do a full CTA of her chest as well as she would benefit from additional ultrasound or maybe possibly runoff of that right leg to rule out the possibility of a higher level blood clot as well as she needs to have a VQ scan done to rule out a PE given we cannot do CTA with contrast here at [facility]. I visited with the family, examined the patient and patient and family are in agreement with plan of care to transfer to [facility]. The transfer after discussing with the Emergency Room physician, it to be arranged through the Emergency Room and she will be followed with Dr. Lubin once discharged home. PAST MEDICAL HISTORY: 1. Atrial fibrillation with pacemaker implementation. 2. Hypertension. 3. Hypothyroidism. 4. Iron-deficiency anemia followed by Dr. Whyte. 5. Osteoporosis. 6. Peptic ulcer disease with an GI bleed in 2004. 7. Coronary artery disease. 8. History of subdural hematoma in 2016. 9. Pulmonary nodules. PAST SURGICAL HISTORY: 1. Appendectomy. 2. Benign breast biopsy x3. 3. Cataract removal bilateral. 4. Hysterectomy. 5. Tonsillectomy and adenoidectomy. 6. Gamma nail to fracture of right hip in 2019. 7. Pacemaker implantation in 2017. CURRENT MEDICATIONS: Awaiting updated list of review of medication. ALLERGIES: Ofloxacin and Propafenone. FAMILY HISTORY: Noncontributory and unremarkable. SOCIAL HISTORY: She is retired. She is and has 2 children. She lives at [facility]. She has never smoked, doesn't drink or use illicit drugs REVIEW OF SYSTEMS: CONSTITUTIONAL: Negative for any fevers, chills. does have some general malaise and weakness with some deconditioning but unintentional weight loss. HEENT: Negative for sore throats, earaches, nasal congestion, vision changes. RESPIRATORY: Denies shortness of breath, wheezing, coughing, dyspnea, hemoptysis. CARDIOVASCULAR: Denies chest pain, palpitations or syncopal episodes. GASTROINTESTINAL: Negative for nausea, vomiting, diarrhea, constipation. GENITOURINARY: Negative for dysuria, hematuria, polyuria. EXTREMITIES: As noted in history of present illness. NEUROLOGIC: Denies headache, vision changes, syncopal episodes, ataxia, seizures. HEMATOLOGIC: Positive for easy bruising, denies unexplained bleeding. Denies any transfusion reactions with last transfusion being earlier in the month. PHYSICAL EXAMINATION: VITAL SIGNS: Temperature 97.7, pulse 71, blood pressure 158/84. Respirations 18, oxygen [id number]% on room air. GENERAL: The patient is resting comfortably, appears to be in no acute distress in the Emergency Room. Family is at bedside. HEENT: Tympanic membranes clear bilateral. Oropharynx is pink, moist without lesions. NECK: Supple, non-tender, full range of motion. CHEST: Lungs are clear to auscultation bilaterally. CARDIOVASCULAR: Regular rate and rhythm without appreciable murmurs, rubs, or gallops. GASTROINTESTINAL: Abdomen is soft, nontender. Bowel sounds are positive. EXTREMITIES: Right leg is swollen from hip down to the lower calf region, is very tender to palpation on exam as well as tight. It is a little bit cooler in appearance on touch compared to the left she did have palpable pulses bilaterally and there is large areas of ecchymosis from the hip down to the toes. NEUROLOGIC: Alert and oriented times three. LABORATORY: White count 10,800, hemoglobin 8.2, hematocrit 24.6, platelet count 109,000, differential showed a left shift. Coagulation studies showed elevated D-dimer 3290. Chemistries showed normal electrolyses. Creatinine was at baseline level at 2.31, BNP was elevated at 810. She had troponins elevated at 0.09 as well as 0.08. Liver showed slightly elevation with a bilirubin of 1.2. RADIOLOGY: Chest x-ray initially in the Emergency Room and per radiology interpretation showed stable abnormalities to include interstitial thickening, hyperventilation and areas of linear scarring. Please see that report for details. ASSESSMENT: 1. Elevated D-dimer with concerns for DVT of the right upper extremity versus hemorrhage with concerns for developing compartmental syndrome in the right leg. 2. Concerns for possible PE with elevated D-dimer requiring VQ scan due to elevated creatine levels. services not not available at [facility]. 3. Elevated troponin with no significant change on EKG, etiology uncertain with patient having a history of diastolic heart failure with elevated BNP on admission to the Emergency Room. Last echocardiogram showing systolic ejection fraction of 45 to 50% with patient having an elevated BNP on admission and elevated troponin. 4. Chronic kidney injury with creatinine 2.31. 5. Chronic atrial fibrillation with atrial pacemaker implantation. 6. History of hypertension. 7. History of hypothyroidism. 8. Chronic iron-deficiency anemia being followed by Dr. Whyte, showing to be stable. 9. Osteoporosis. 10. History of peptic ulcer disease with upper GI bleed in 2004. 11. Coronary artery disease. 12. History of subdural hematoma in 2016. 13. Pulmonary nodules. PLAN: Given the patient's exam with the right leg being swollen and bruised and concerns for possible blood clot versus bleeding along with elevated D-dimer, after further exam and discussing with the patient and Emergency Room physician, our recommendations were that the patient be transferred to [facility] for a VQ scan to further rule out that there is not a pulmonary embolism resulting in the elevated D-dimer. She also has elevated troponins which I am not sure if this is related to possible PE versus mild exacerbation of congestive heart failure given the elevated BNP, although the patient was fairly asymptomatic with regards to congestive heart failure. She does have a reduced ejection fraction of 45 to 50%, therefore, given her advanced age would certainly benefit from a cardiology consultation as well. Given that her creatinine is chronically elevated, a VQ scan is a safer route after talking to Dr. Davis in regard to rule out a PE. I did talk with the family at length in regard to the plan of care. They are in agreement to transfer to a higher level of care at this point and do appreciate the care they are receiving in the Emergency Room and understand that once they are discharged from [facility], they need to followup with Dr. Lubin. I did discuss the patient's case with Dr. Lubin who also agreed with plan of care at this point. Therefore, the patient is to be transferred to [facility] [place] for a higher level of care and further evaluation in the form of additional diagnostics including a VQ scan and evaluation of the right lower extremity to rule out a possible deep venous thrombosis. She also has a history in the past of having issues with blood thinners and is followed by Dr. Whyte and therefore, additional services through Dr. Whyte should a PE become evident. Again, the patient will need to followup with Dr. Lubin once she is discharged from [facility] [place]. #[id number] [id number]
[2020-01-13] MEDS ORDERED: ONDANSETRON INJ 4 MG/2 ML VIAL IV ONE (20:46)
[2020-01-13 20:56] VITALS: BP 141/76; O2SAT 98
== END 2020-01-13 21:02 | disposition short-term general hospital (02) ==
LOC: ER 10:39
DX: M79.89 Other specified soft tissue disorders (principal); R79.89 Other specified abnormal findings of blood chemistry; N18.9 Chronic kidney disease, unspecified; I50.9 Heart failure, unspecified; I13.0 Hypertensive heart and chronic kidney disease with heart failure and stage 1 through stage 4 chronic kidney disease, or unspecified chronic kidney disease; I48.91 Unspecified atrial fibrillation; E07.9 Disorder of thyroid, unspecified; K21.9 Gastro-esophageal reflux disease without esophagitis; Z95.0 Presence of cardiac pacemaker; Z79.82 Long term (current) use of aspirin; Z79.899 Other long term (current) drug therapy; Z88.8 Allergy status to other drugs, medicaments and biological substances